=== PATIENT | male | born 1985 | race Caucasian/White ===

== ENCOUNTER 2017-11-01 20:56 | Emergency (ER) | payer MEDICAID, SELFPAY ==
[2017-11-01 20:58] VITALS: BP 124/72; PULSE 80; RESP 16; TEMP 36.1; O2SAT 95; BMI 24.2
--- NOTE | 2017-11-01 21:21 | NURSING ---
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
[2017-11-01 21:35] LABS: Absolute Neutrophil Count 7.7 X10^3/uL (2.0-7.7); Basophil# 0.03 X10^3/uL; Basophil% 0.3 % (0-1); Eosinophil# 0.08 X10^3/uL; Eosinophils% 0.7 % (0-5); Hematocrit 39.9 % (40-54); Hemoglobin 14.1 g/dl (13.0-16.5); Lymphocyte % 19.5 % (19-41); Mean Corp Hgb Conc 35.3 g/gl (32-36); Mean Corpuscular Hgb 32.9 pg (27.0-32.0); Mean Platelet Vol. 9.7 fl (6.2-12.0); Monocyte# 0.88 X10^3/uL; Monocyte% 8.2 % (0-10); Neutrophil # 7.66 X10^3/uL (2.7-7.7); Neutrophil % 71.1 % (47-70); Platelet Count 280 K/mm3 (150-450); RBC Distribution Width CV 12.1 % (11.6-14.6); RBC Distribution Width SD 40.6 fl (35.1-43.9); Red Blood Count 4.29 M/mm3 (4.6-6.2); White Blood Count 10.8 K/mm3 (4.4-11.0)
[2017-11-01 21:36] LABS: POSITIVE COUNT NO; POSITIVE DIFFERENTIAL NO; POSITIVE MORPHOLOGY NO
[2017-11-01 21:43] LABS: International Normalized Ratio 1.1; Prothrombin Time (Protime)PT. 13.9 SECONDS (11.7-14.9)
--- NOTE | 2017-11-01 21:46 | NURSING ---
PAGED DR. العراقي @ [id number] AND CALLED BACK @ [id number]
[2017-11-01 21:48] LABS: Anion Gap 6 (5-15); BUN 10 mg/dL (7-18); BUN/Creat Ratio 9.5 RATIO (10-20); Calcium,Total 8.3 mg/dL (8.5-10.1); Chloride 106 mmol/L (98-107); Creatinine, Serum 1.05 mg/dL (0.70-1.30); EST Glomerular Filtration Rate 87 mL/min (>60); Est Glom Filt Rate - Afr Amer 105 mL/min (>60); Glucose 96 mg/dL (74-106); Potassium 3.9 mmol/L (3.5-5.1); Sodium Level 140 mmol/L (136-145)
[2017-11-01] MEDS: Ondansetron 4 MG/2 ML Vial IV (22:01)
[2017-11-01] MEDS: Ketorolac 30 MG/ML Syringe IV (22:27)
--- NOTE | 2017-11-01 22:48 | ED.DCSUM_ITS ---
- ER Visit Summary Date of Service: 11/01/17 Chief Complaint: Oral bleeding History of Present Illness: The patient is a 32 M who had dental surgery earlier today at the start him in clinic. He had multiple dental extractions. Roughly 2 hours after the procedure he began to have bleeding. He has been unable to control this so he presented here. He denies any history of coagulopathy or easy bruising or bleeding in the past. He has on no anticoagulants or aspirin. Physical Examination: Afebrile vitals are stable Patient has active bleeding along the superior alveolar ridge. He had multiple clots. Neck supple Heart regular Lungs clear Test Results: CBC BMP and INR unremarkable. Emergency Department Course and Treatment: She had significant bleeding on initial presentation. He continued to have bleeding and clots. I spoke to Dr. Cazares and Dr. Torrez and recommendations were made to try thrombin and FloSeal. Did Pl., FloSeal on gauze and had the patient bite down on this. On reevaluation his bleeding appears to be controlled. I did have him continue to bite on gauze to apply pressure. At the time of this dictation roughly 2 hours after presentation his bleeding does appear to remain controlled he does not currently have active bleeding. I will observe him for another hour to ensure the bleeding is controlled and if it is he can be discharged home. Was advised of the need to follow-up with his dentist. He understands to return for new or worsening symptoms. Treatment Plan: [] Disposition: Discharge Impression: Postoperative bleeding This note was generated with [employer] dictation software. It may contain incorrect words, spelling, and punctuation that were not noted in review of the chart prior to signing ED Disposition - Plan for ED Patient: Chief Complaint: Dental Referrals: Care Physician,No Primary [Primary Care Provider] -
--- NOTE | 2017-11-01 22:49 | ED.DEP ---
ED Disposition - Plan for ED Patient: Chief Complaint: Dental Instructions: ED Wound Check Post Op Bleeding Referrals: Care Physician,No Primary [Primary Care Provider] -
[2017-11-02 00:01] VITALS: BP 120/77; PULSE 61; RESP 16; O2SAT 100
== END 2017-11-02 00:02 | disposition home or self-care (01) ==
LOC: ED 21:24
PROVIDERS: Emergency Provider Emergency Medicine
DX: K91.840 Postprocedural hemorrhage of a digestive system organ or structure following a digestive system procedure (principal); Z98.818 Other dental procedure status; Z72.0 Tobacco use
CPT/HCPCS: 80048; 85025; 85610; 96374; 96375; 99284; A4216; J2405

== ENCOUNTER → 2021-06-22 09:44 | Outpatient (CLI) | payer BC, SELFPAY ==
[2021-06-22 10:31] LABS: Hemoglobin A1c 5.1 % (3.8-5.6)
[2021-06-28 00:06] LABS: Testosterone, Free 8.02 ng/dL (5.00-21.00)
[2021-06-28 13:44] LABS: Testosterone, % Free 1.38 % (1.50-4.20); Testosterone, Total 581 ng/dL (264-916)
== END ==
PROVIDERS: Referring Provider Nurse Practitioner Adult Health; Visit Provider Nurse Practitioner Adult Health
DX: N52.9 Male erectile dysfunction, unspecified (principal); F41.1 Generalized anxiety disorder; Z51.81 Encounter for therapeutic drug level monitoring
CPT/HCPCS: 36415; 83036; 84402; 84403

== ENCOUNTER 2025-07-24 15:29 | Emergency (ER) | payer MEDICAID, SELFPAY ==
[2025-07-24 15:30] VITALS: BP 106/66; PULSE 108; RESP 18; TEMP 37.6; O2SAT 97; BMI 24.0
--- NOTE | 2025-07-24 15:40 | RAD_ITS ---
PROCEDURE: CHEST PA AND LATERAL 07/24/2025 REASON FOR EXAM: COUGH TECHNIQUE: Procedure Code: RADCXR Modality: DX Procedure: CHEST PA AND LATERAL COMPARISON: None FINDINGS: Hardware: None Heart: The heart size is normal. Mediastinum: The mediastinal contour is unremarkable. Lungs: The lungs are clear. Bones: The bones are unremarkable. RAD/Chest PA and Lateral IMPRESSION: NO ACUTE FINDINGS. Reading Location: [facility]
--- NOTE | 2025-07-24 15:41 | EX.ED.VIS.UR ---
HPI HPI - URI History of Present Illness Chief Complaint: Abd Pain Detail of Chief Complaint: Nonproductive cough. Lower rib cage pain bilaterally. Informant: patient Onset/Context/Timing Onset: Today Context: Gradual Onset Timing: Intermittent Current Severity: Mild Maximum Severity: Mild Narrative Narrative: 39-year-old male no significant past medical history no significant prior abdominal surgeries. States he has a nonproductive cough and bilateral lower rib cage pain today. No abdominal pain. Denies any nausea, vomiting or diarrhea. No fever. No dysuria. No constipation. No melena. Prior similar symptoms: No Recent Illness/Hospitalization: No ROS ROS ED ROS Narrative Nonproductive cough and bilateral lower rib cage pain. Constitutional Constitutional ED: Denies fever(s) Eyes Eyes: Denies blurry vision ENT ENT ED: Denies ear pain Cardiovascular Cardiovascular: Reports other Details: Bilateral rib cage pain. Nonproductive cough. ; Denies chest pain Respiratory/Chest Respiratory/Chest: Denies cough or dyspnea Gastrointestinal Gastrointestinal: Denies abdominal pain, constipation, diarrhea, melena, nausea or vomiting Genitourinary Genitourinary ED: Denies dysuria or hematuria Musculoskeletal Musculoskeletal: Denies arthralgias or back pain Integumentary Denies abscess Neurologic Neurologic: Denies headache(s) Psychiatric Psychiatric: Denies anxiety or depression Endocrine Endocrinology: Denies cold intolerance Hematologic/Lymphatic Hematologic/Lymphatic: Denies easy bleeding, easy bruising or lymphadenopathy Allergic/Immunologic Allergic/Immunologic ED: Denies mouth swelling, tongue swelling or urticaria PFSH PFSH Medical History no medical history no medical history Home Medications ?Medication ?Instructions ?Recorded ?Last Taken ?Type fluoxetine 20 mg capsule 20 mg PO DAILY 11/01/17 Unknown History Allergy/AdvReac Type Severity Reaction Status Date / Time atomoxetine (From Strattera) Allergy Intermediate crotch pain Verified 07/24/25 15:29 Social History Smoking Status: Current every day smoker EXAM Physical Exam Narrative Exam Narrative: 39-year-old male vital signs are stable afebrile does not look septic toxic no acute distress. Pulse ox 97% on room air temperature 99.7. Patient does not look septic nor toxic. H EENT exam pupils round react light. Moist mutes membranes. Posterior pharynx unremarkable. No trouble swallowing or breathing no erythema or exudate. TMs normal no signs of trauma to face or scalp. Neck nontender. No lymphadenopathy. No meningismus. Able to touch chin to chest. Back nontender. Lungs clear to auscultation bilaterally. Heart regular rhythm rate about 105 no murmur. Chest wall ribs nontender. Abdomen soft, nontender, nondistended, normal bowel sounds without peritoneal signs. Both right upper right lower quadrant unremarkable. No distention no mass. No obstruction. Moving all 4 extremities. 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 Normal dorsi plantarflexion. Nontender no edema. Normal range of motion. Neurologic exam normal. NIH 0. Fingertip to nose [id number] within normal limits. No drift. Skin unremarkable. No petechiae or purpura. No rashes. Benign exam. Const Vital Signs: 07/24/25 15:30 Temperature 99.7 F H Temperature Source Oral Pulse Rate 108 H Respiratory Rate 18 Blood Pressure 106/66 Blood Pressure Mean 79 Pulse Ox 97 Oxygen Delivery Method Room Air MDM MDM MDM Narrative Medical decision making narrative: 39-year-old male nonproductive cough and bilateral lower rib cage pain. On exam no abdominal pain. Tingling is a viral syndrome. Is a very benign exam but will obtain chest x-ray to rule out a lower lobe pneumonia. Clinically I do not hear pneumonia. He was offered but did not want any Tylenol or Motrin. Repeat exam unchanged around 3:55 PM. Chest x-ray is unremarkable. Being discharged home. Treated as viral syndrome. Repeat abdominal exam benign. History & Record Review Discussion w/independent historian: Patient Additional record(s) reviewed:: Prior outpatient record and Prior ED visit Radiography Chest X-Ray - ED: 2 View, Read by ED Physician, Normal, Heart, Lungs, Mediastinum, Bony Structures and No Acute Disease Diagnostic Testing: Chest x-ray, 2 views, AP and lateral, interpreted by myself shows no acute abnormality. Normal cardiac silhouette. Normal lung driscoll. Discharge Plan Triage Chief Complaint: Abd Pain Other Complaint: Headache ED Provider: Yfn Velez Dx/Rx/DC Orders Clinical Impression: Viral syndrome Instructions: ED Viral Syndrome (Adult) Prescriptions: No Action fluoxetine 20 MG capsule 20 mg PO DAILY Primary Care Provider: Care Physician,No Primary Referrals: Nilesh Rodriguez MD [Med Staff - Systems Engineering Manager, Family Practice] - 1 Week if not improving Care Physician,No Primary [Primary Care Provider, Medical] Activity Restrictions/Additional Instructions: Plenty of fluids and rest. Motrin and Tylenol for pain. Follow-up if not improving or return if worse. Print Language: Taiwanese Disposition Disposition: Home, Self Care
--- OUTSIDE RECORDS SUMMARY | 2025-07-24 15:49 | XMS RPT_ITS | CCD ---
Author Organization [facility] Care Team Providers Care Billboard Erector Name Role Phone Required, No Pcp Unavailable Unavailable Mirza Black Unavailable Unavailable No, Physician Primary Care Provider Unavailabl e NO, PHYSICIAN Primary Care Unavailable NACHO MORENO Referring Unavailable NACHO MORENO Admitting Unavailable Mraiah ARANGO, Lynn Ron [facility] Care Provide r Lynn Lemus MD [facility] Provide r Lynn Lemus MD Unavailable CANDY GILBERT Attending Unavailab LYNN Ram Primary Care Unavail able LYNN LEMUS Primary [facility] Unavail able CANDY GILBERT Referring Unavailab GUILLERMINA Dalal Admitting Unavailable TOMAS MCDONALD Attending Unavailab sugar Lemus MD, Lynn Ron [facility] Provide r Robert Hernandez CNP Primary Care Provider ROBERT HERNANDEZ Attending UnavailLYNN Pisano Primary Care Unavail able ROBERT HERNANDEZ Primary Care Unavailabl ROBERT Zurita Referring Unavailabl ROBERT Zur[place] Admitting Unavailrob e JUMANA JIMENEZ Attending Unavailab le ROBERT HERNANDEZ Primary Care Unavailabl e JUMANA JIMENEZ Attending Unavailab le ROBERT HERNANDEZ Primary Care Unavailrob e JUMANA JIMENEZ Attending Unavailab le ROBERT HERNANDEZ Primary Care Unavailabl e JUMANA JIMENEZ Attending ROBERT Bass Primary Care JUMANA Rangel Attending [place] Allergies Allergy Classification Reported Allergen(s) Allergy Type Date of Onset Reaction(s) Facility (16 sources) atomoxetine; Translations: [ATOMOXETINE] Drug Allergy 2 Other (See Comments) [facility] Work Phone: (7 sources) Viloxazine; Translations: [VILOXAZINE] Drug Allergy 5 Unknown [facility] Medications Current Medications Medication Drug Class(es) Dates Sig (Normalized) Sig (Original) amphetamine aspartate 3.75 mg / amphetamine sulfate 3.75 mg / dextroamphetamine saccharate 3.75 mg / dextroamphetamine sulfate 3.75 mg oral tablet (2 sources) Central Nervous System Stimulant take 1 tablet by mouth once daily Adderall 10 mg oral tablet ; orally once a day Quantity: 0 Refills: 0 Ordered: 29-Oct-2021 Siewert, Xochilt Generic Substitution Allowed take 1 tablet by mouth once usha y Adderall 15 mg oral tablet ; orally once a day Quantity: 0 Refills: 0 Ordered: 29-Oct-2021 Siewert, Xochilt Generic Substitution Allowed ARIPiprazole 10 mg oral tablet (2 sources) Atypical Antipsychotic Start: 05-12-2025 End: 06-11-2025 take 1 tablet by mouth once daily ARIPiprazole (ABILIFY) 10 MG tablet Indications: Moderate episode of recurrent major depressive disorder (HCC) , Paranoia (HCC) Take 1 (one) tablet (10 mg total) by mouth daily . 30 tablet 05/12/2025 06/11/2025 Active Start: 04-28-2025 End: 05-28-2025 take 1 tablet by mouth once daily ARIPiprazole (ABILIFY) 5 MG tablet Indications: Moderate episode of recurrent major depressive disorder (HCC) , Paranoia (HCC) Take 1 (one) tablet (5 mg total) by mouth daily . 30 tablet 04/28/2025 05/28/2025 Active 24 hr buPROPion hydrochloride 450 mg extended release oral tablet (17 sources) Aminoketone Start: 04-06-2022 End: 2022 take 1 tablet by mouth once daily buPROPion (FORFIVO XL) 450 mg 24 hr tablet Indications: Attention deficit hyperactivity disorder (ADHD), predominantly inattentive type , Moderate episode of recurrent major depressive disorder (HCC) Take 1 (one) tablet (450 mg total) by mouth daily . 30 tablet 5 04/06/2022 2022 Discontinued (Therapy completed) Start: 02-28-2022 End: 11-14-2024 take 1 tablet by mouth once daily buPROPion (WELLBUTRIN XL) 300 MG 24 hr tablet Take 1 (one) tablet (300 mg total) by mouth daily . 0 02/28/2022 04/06/2022 Discontinued (Reorder) End: 11-14-2024 take 1 tablet by mouth once daily buPROPion (WELLBUTRIN XL) 150 MG 24 hr tablet Take 1 (one) tablet (150 mg total) by mouth daily . 11/14/2024 Discontinued (Patient's Request) Wellbutrin ; 300 orally once a day Quantity: 0 Refills: 0 Ordered: 29-Oct-2021 Lisa Xochilt Generic Substitution Allowed bx rating 24 hr methylphenidate hydrochloride 27 mg extended release oral tablet (4 sources) Central Nervous System Stimulant Start: 01-04-2022 take 1 tablet by mouth once daily methylphenidate HCl (CONCERTA) 27 MG CR tablet Take 1 (one) tablet (27 mg total) by mouth daily . 0 01/04/2022 Active methylPREDNISolone (5 sources) Corticosteroid Start: 03-22-2022 End: 2022 methylPREDNISolone (MEDROL DOSEPACK) 4 mg tablet follow package directions . 21 tablet 0 03/22/2022 2022 Discontinued (Therapy completed) Start: 03-22-2022 methylPREDNISo lone (MEDROL DOSEPACK) 4 mg tablet follow package directions . 21 tablet 0 03/22/2022 Active Seraquel (1 source) Seraquel ; 100 milligram(s) once a day Quantity: 0 Refills: 0 Ordered: 29-Oct-2021 Siechayat, Xochilt Generic Substitution Allowed sildenafil 100 mg oral tablet (1 source) Phosphodiesterase 5 Inhibitor Start: 023 End: 023 take 1 tablet by mouth once daily as needed sildenafiL (VIAGRA) 100 MG tablet Indications: Erectile dysfunction, unspecified erectile dysfunction type Take 1 (one) tablet (100 mg total) by mouth daily as needed for erectile dysfunction . 9 tablet 5 2022 04/05/2023 Active traZODone hydrochloride 150 mg oral tablet (13 sources) Serotonin Reuptake Inhibitor Start: End: take 2 tablets by mouth once daily traZODone (DESYREL) 150 MG tablet Indications: Insomnia, unspecified type Take 2 (two) tablets (300 mg total) by mouth nightly . 90 tablet 1 11/14/2024 Active Completed/Discontinued Medications Medication Drug Class(es) Dates Sig (Normalized) Sig (Original) aluminum hydroxide 40 mg/ml / magnesium hydroxide 40 mg/ml / simethicone 4 mg/ml oral suspension (1 source) Start: 07-21-2023 End: 07-22-2023 take 30 mL by mouth every four hours as needed 30 mL, Oral, Every 4 hours PRN, indigestion, Starting on Mon07/21/23 at 2344 ibuprofen 600 mg oral tablet (1 source) Nonsteroidal Anti-inflammatory Drug Start: 07-21-2023 End: 07-22-2023 take 1 tablet by mouth every six hours as needed for pain and headache 600 mg, Oral, Every 6 hours PRN, mild pain, fever 100.4 F or greater, headaches, Starting on Mon07/21/23 at 2344 Give with food. Do Not Crush or Chew if administering orally due to bitter taste. May be crushed if given via tube. lamoTRIgine 100 mg oral tablet (5 sources) Mood Stabilizer, Anti-epileptic Agent End: 11-14-2024 take 1 tablet by mouth once daily lamoTRIgine (LAMICTAL) 100 MG tablet Take 1 (one) tablet (100 mg total) by mouth daily . 11/14/2024 Discontinued (Patient's Request) LORazepam 1 mg oral tablet (1 source) Benzodiazepine Start: 07-21-2023 End: 07-22-2023 take 1 tablet by mouth every six hours as needed for anxiety 1 mg, Oral, Every 6 hours PRN, anxiety, agitation, Starting on Mon07/21/23 at 2343 melatonin 5 mg oral tablet (1 source) Start: 07-21-2023 End: 07-22-2023 take 5 mg by mouth once daily as needed for sleep 5 mg, Oral, Nightly PRN, Sleep, Starting on Mon07/21/23 at 2344 ondansetron (ZOFRAN-ODT) disintegrating tablet 4 mg (1 source) Start: 07-21-2023 End: 07-22-2023 take 1 tablet by mouth every six hours as needed for nausea and vomiting ondansetron (ZOFRAN-ODT) disintegrating tablet 4 mg QUEtiapine 200 mg oral tablet (20 sources) Atypical Antipsychotic Start: 01-28-2025 End: 04-28-2025 take 1 tablet by mouth once daily QUEtiapine (SEROQUEL) 200 MG tablet Indications: Moderate episode of recurrent major depressive disorder (HCC) , Generalized anxiety disorder Take 1 (one) tablet (200 mg total) by mouth nightly . 90 tablet 01/28/2025 04/28/2025 Discontinued (Prescriber Discontinued) Start: 01-01-2025 End: 01-28-2025 take 1 tablet by mouth once daily QUEtiapine (SEROQUEL) 100 MG tablet Indications: Moderate episode of recurrent major depressive disorder (HCC) , Generalized anxiety disorder Take 1 (one) tablet (100 mg total) by mouth nightly . 30 tablet 01/01/2025 01/28/2025 Discontinued (Reorder (Suppress CancelRx Message to Pharmacy)) Start: 11-14-2024 End: 01-01-2025 take 1 tablet by mouth once daily QUEtiapine (SEROQUEL) 50 MG tablet Indications: Moderate episode of recurrent major depressive disorder (HCC) , Borderline personality disorder (HCC) Take 1 (one) tablet (50 mg total) by mouth nightly . 90 tablet 1 11/14/2024 01/01/2025 Discontinued (Reorder (Suppress CancelRx Message to Pharmacy)) Start: 02-28-2022 End: 2022 take 1 tablet by mouth once daily QUEtiapine (SEROQUEL) 100 MG tablet Indications: Moderate episode of recurrent major depressive disorder (HCC) Take 1 (one) tablet (100 mg total) by mouth daily . 30 tablet 5 04/06/2022 2022 Discontinued (Therapy completed) Sodium Chloride (1 source) Start: 07-21-2023 End: 07-22-2023 sodium chloride (PF) (NS) flush 5 mL 1 ml triamcinolone acetonide 40 mg/ml injection (2 sources) Corticosteroid Start: 08-10-2022 End: 08-10-2022 triamcinolone acetonide (KENALOG-40) injection 40 mg Start: 03-22-2022 End: 03-22-2022 triamcinolone acetonide (SALMA ALOG-40) injection 40 mg Problems Active Problems Problem Classification Problem Date Documented Date Episodic/Chronic Anxiety disorders (6 sources) Generalized anxiety disorder; Translations: [Generalized anxiety disorder] Onset: 01-01-2025 01-01-2025 Chronic Attention-deficit, conduct, and disruptive behavior disorders (20 sources) Attention deficit hyperactivity disorder, predominantly inattentive type; Translations: [Attention-deficit hyperactivity disorder, predominantly inattentive type] Onset: 04-06-2022 Chronic Attention-deficit, conduct, and disruptive behavior disorders (2 sources) Attention-deficit hyperactivity disorder, predominantly inattentive type; Translations: [Attention-deficit hyperactivity disorder, predominantly inattentive type] Onset: 04-06-2022 Chronic Mood disorders (20 sources) Recurrent major depressive episodes, moderate ; Translations: [Major depressive disorder, recurrent, moderate] Onset: 04-06-2022 Chronic Other aftercare (1 source) Long-term current use of antipsychotic medication; Translations: [Other senior living (current) drug therapy] 04-28-2025 Episodic Other connective tissue disease (1 source) Biceps tendinitis; Translations: [Bicipital tendinitis, left shoulder] Episodic Other connective tissue disease (2 sources) Bursitis of shoulder; Translations: [Bursitis of left shoulder] Episodic Other connective tissue disease (1 source) Tendinitis of left rotator cuff; Translations: [Other shoulder lesions, left shoulder] Episodic Other male genital disorders (11 sources) Male erectile dysfunction, unspecified; Translations: [Impotence of organic origin] Onset: 2022 Chronic Personality disorders (18 sources) Borderline personality disorder; Translations: [Borderline personality disorder] Onset: 11-14-2024 11-14-2024 Chronic Poisoning by other medications and drugs (2 sources) Poisoning by unspecified drugs, medicaments and biological substances, accidental (unintentional), initial encounter; Translations: [Poisoning by unspecified drugs, medicaments and biological substances, accidental (unintentional), initial encounter] Onset: 07-21-2023 Episodic Residual codes; unclassified (10 sources) Insomnia; Translations: [Insomnia, unspecified] 11-14-2024 Episodic Schizophrenia and other psychotic disorders (6 sources) Paranoid disorder; Translations: [Delusional disorders] Onset: 04-28-2025 04-28-2025 Chronic Unclassified (2 sources) TOUCHED DOG PHENTANOL PATCH 10-30-2021 Comment on above: TOUCHED DOG PHENTANO L PATCH Unclassified (2 sources) Medication Refill Onset: 11-14-2024 Past or Other Problems Problem Classification Problem Date Documented Date Episodic/Chronic Mood disorders (16 sources) Mood disorders Onset: 11-14-2024 Resolved: 01-01-2025 11-14-2024 Poisoning by psychotropic agents (12 sources) Accidental buspirone overdose; Translations: [Poisoning by other antipsychotics and neuroleptics, accidental (unintentional), initial encounter] Onset: 07-21-2023 07-21-2023 Episodic Results Test Name Value Interpretation Reference Range Facility CBC Auto Differentialon 07-01 Basophils (Bld) [#/Vol] 0.04 10*3/uL [facility] Basophils/100 WBC (Bld) 0.7 % [facility] Eosinophils (Bld) [#/Vol] 0.13 10*3/uL [facility] Eosinophils/100 WBC (Bld) 2.3 % [facility] Erythrocyte distribution width (RBC) [Entitic vol] 12.0 % 11.6 - 14.8 % [facility] Hematocrit (Bld) [Volume fraction] 39.5 % Low 41.0 - 53.0 % [facility] Hemoglobin (Bld) [Mass/Vol] 13.6 g/dL 13.5 - 17.5 g/dL [facility] Immature granulocytes (Bld) [#/Vol] 0.01 10*3/uL [facility] Immature granulocytes/100 WBC (Bld) 0.20 % [facility] Comment on above: The IG parameter is the percentage of metamyelocytes, myelocytes and promyelocytes. An immature granulocyte count (IG) of 1% or more suggests the possibility of infection, an IG count of 3% is very likely related to an infection. Interpretation and review of laboratory results Abnormal [facility] Lymphocytes (Bld) [#/Vol] 2.06 10*3/uL [facility] Lymphocytes/100 WBC (Bld) 36.0 % [facility] MCH (RBC) [Entitic mass] 32.2 pg 26.0 - 34.0 pg [facility] MCHC (RBC) [Mass/Vol] 34.4 g/dL 31.0 - 37.0 g/dL [facility] MCV (RBC) [Entitic vol] 93.6 fL 80.0 - 100.0 fL [facility] Monocytes (Bld) [#/Vol] 0.64 10*3/uL [facility] Monocytes/100 WBC (Bld) 11.2 % [facility] Neutrophils (Bld) [#/Vol] 2.84 10*3/uL [facility] Neutrophils/100 WBC (Bld) 49.6 % [facility] Nucleated RBC (Bld) [#/Vol] 0.00 10*3/uL [facility] Nucleated RBC/100 WBC (Bld) [Ratio] 0.0 % [facility] Platelet mean volume (Bld) [Entitic vol] 9.2 fL Low 9.4 - 12.4 fL [facility] Platelets (Bld) [#/Vol] 243 10*3/uL [facility] RBC (Bld) [#/Vol] 4.22 10*6/uL [facility] WBC (Bld) [#/Vol] 5.72 10*3/uL [facility] Comprehensive metabolic 2000 panelon 07-22-2023 Albumin [Mass/Vol] 3.2 g/dL 3.2 - 5.2 g/dL [facility] ALP [Catalytic activity/Vol] 64 U/L 40 - 140 U/L [facility] ALT [Catalytic activity/Vol] 17 U/L 14 - 65 U/L [facility] Anion gap [Moles/Vol] 8 mmol/L Low 10 - 20 mmol/L [facility] AST [Catalytic activity/Vol] 15 U/L 0-50 U/L [facility] Bilirubin [Mass/Vol] 0.5 mg/dL 0.0 - 1.3 mg/dL [facility] Calcium [Mass/Vol] 8.2 mg/dL Low 8.4 - 10. 2 mg/dL [facility] Chloride [Moles/Vol] 109 mmol/L High 98 - 108 mmol/L [facility] Creatinine [Mass/Vol] 1.16 mg/dL 0.50 - 1.30 mg/dL [facility] GFR/1.73 sq M.predicted CKD-EPI (S/P/Bld) [Vol rate/Area] 83 - PINF [facility] Comment on above: Estimated GFR was ca lculated using the 2020 CKD-EPI creatinine equation. Glucose [Mass/Vol] 121 mg/dL High 65 - 99 mg/dL [facility] HCO3 [Moles/Vol] 27 mmol/L 21 - 32 mmol/L [facility] Interpretation and review of laboratory results Abnormal [facility] Potassium [Moles/Vol] 3.6 mmol/L 3.5 - 5.1 mmol/L [facility] Protein [Mass/Vol] 6.0 g/dL 6.0 - 8.0 g/dL [facility] Sodium [Moles/Vol] 140 mmol/L 135 - 145 mmol/L [facility] Urea nitrogen [Mass/Vol] 8 mg/dL 8 - 25 mg/dL [facility] Urea nitrogen/Creatinine [Mass ratio] 6.9 mg/mg Low 10.0 - 20.0 [facility] Services has implemented the eGFR calculation approach that does not have a coefficient for race that conforms to the NKF-ASN Task Force Recommendations. [facility] Magnesiumon 07-22-2023 Magnesium [Mass/Vol] 2.4 mg/dL 1.6 - 2.4 mg/dL [facility] Magnesium [Mass/Vol]on 07-22 Interpretation and review of laboratory results Normal [facility] LG Jt Injection/Arthrocentes is: L subacromial bursaon 08-10-2022 Nacho Moreno CNP 08/10/2022 8:34 AM LG Jt Injection/Arthrocentesi s: L subacromial bursa Performed by: Nacho Moreno CNP Authorized by: Nacho Moreno CNP CPT 07807 - Large Joint Arthrocentesis: Consent given by: Patient Time out: Immediately prior to the procedure a time out was called Timeout performed at: 08/10/2022 8:34 AM Physician or proceduralist has discussed critical or nonroutine steps, procedure duration and anticipated blood loss: Yes Supporting Documentation: Indications: Pain Procedure Details: Location: Shoulder Site: L subacromial bursa Prep: patient was prepped and draped in usual sterile fashion Needle size: 22 G Approach: Posterior Medications: 40 mg triamcinolone acetonide 40 mg/mL Anesthetic used: Ethyl Chloride and Bupivacaine 0.5% Anesthetic amount (mL): 1 Patient tolerance: Patient tolerated the procedure well with no immediate complications [facility] Basic metabolic 2000 panelon 04-06-2022 Anion gap [Moles/Vol] 10 mmol/L 10 - 20 mmol/L [facility] Calcium [Mass/Vol] 8.7 mg/dL 8.4 - 10. 2 mg/dL [facility] Chloride [Moles/Vol] 109 mmol/L High 98 - 108 mmol/L [facility] Creatinine [Mass/Vol] 1.03 mg/dL 0.50 - 1.30 mg/dL [facility] GFR/1.73 sq M.predicted CKD-EPI (S/P/Bld) [Vol rate/Area] 97 - PINF [facility] Comment on above: Estimated GFR was ca lculated using the 2020 CKD-EPI creatinine equation. Glucose [Mass/Vol] 93 mg/dL 65 - 99 mg/dL [facility] HCO3 [Moles/Vol] 25 mmol/L 21 - 32 mmol/L [facility] Potassium [Moles/Vol] 4.3 mmol/L 3.5 - 5.1 mmol/L [facility] Sodium [Moles/Vol] 140 mmol/L 135 - 145 mmol/L [facility] Urea nitrogen [Mass/Vol] 13 mg/dL 8 - 25 mg/dL [facility] Urea nitrogen/Creatinine [Mass ratio] 12.6 mg/mg 10 - 20 [facility] has implemented the eGFR calculation approach that does not have a coefficient for race that conforms to the NKF-ASN Task Force Recommendations. [facility] Hepatic function 1999 panelo n 04-06-2022 Albumin [Mass/Vol] 3.7 g/dL 3.2 - 5.2 g/dL [facility] ALP [Catalytic activity/Vol] 88 U/L 40 - 140 U/L [facility] ALT [Catalytic activity/Vol] 39 U/L 14 - 65 U/L [facility] AST [Catalytic activity/Vol] 30 U/L 0 - 45 U/L [facility] Bilirubin [Mass/Vol] 0.4 mg/dL 0 - 1.3 mg/dL [facility] Bilirubin.conjugate d [Mass/Vol] 0.1 mg/dL 0 - 0.4 mg/dL [facility] Protein [Mass/Vol] 6.6 g/dL 6 - 8 g/dL [facility] Lipid 1995 panelon 2 Cholesterol [Mass/Vol] 216 mg/dL High 100 - 199 mg/dL [facility] Comment on above: National Cholesterol Education Program Guidelines: Cholesterol Desirable: <200 mg/dL Borderline High: 200-239 mg/dL High: greater than or equal to 240 mg/dL Cholesterol in HDL [Mass/Vol] 66 mg/dL 40 - 59 mg/dL [facility] Comment on above: National Cholesterol Education Program Guidelines: HDL Cholesterol Low: <40 mg/dL Near Optimal: 40-59 mg/dL High: greater than or equal to 60 mg/dL Cholesterol in LDL [Mass/Vol] 141 mg/dL High 10 - 130 mg/dL [facility] Comment on above: National Cholesterol Education Program Guidelines: LDL Cholesterol Optimal: <100 mg/dL Near Optimal/above Optimal: 100-129 mg/dL Borderline High: 130-159 mg/dL High: 160-189 mg/dL Very High: greater than or equal to 190 mg/dL Cholesterol non HDL [Mass/Vol] 150 mg/dL [facility] Comment on above: National Cholesterol Education Program Guidelines: NON HDL Cholesterol Desirable: <130 mg/dL Borderline High: 130-159 mg/dL High: 160-189 mg/dL Very High: > or = 190 mg/dL Cholesterol.total/C holesterol in HDL [Mass ratio] 3.3 {ratio} ratio [facility] Comment on above: Males Cholesterol/HD L Ratio: Average risk: 5.0 1/2 average risk: 3.4 2 x average risk: 9.6 Triglyceride [Mass/Vol] 44 mg/dL 30 - 150 mg/dL [facility] Comment on above: National Cholesterol Education Program Guidelines: Triglyceride Normal: <150 mg/dL Borderline High: 150-199 mg/dL High: 200-499 mg/dL Very High: greater than or equal to 500 mg/dL No Panel Informationon 04-06 Interpretation and review of laboratory results Abnormal [facility] Interpretation and review of laboratory results Normal [facility] TSH DL <= 0.005 mIU/L Qnon 0 04-06-2022 TSH Qn 2.14 m[IU]/L [facility] LG Jt Injection/Arthrocentes virgilio 03-22-2022 Nacho Moreno CNP 03/22/2022 8:30 AM LG Jt Injection/Arthrocentesi s Performed by: Nacho Moreno CNP Authorized by: Nacho Moreno CNP CPT 74242 - Large Joint Arthrocentesis: Consent given by: Patient Time out: Immediately prior to the procedure a time out was called Timeout performed at: 03/22/2022 8:30 AM Physician or proceduralist has discussed critical or nonroutine steps, procedure duration and anticipated blood loss: Yes Supporting Documentation: Indications: Pain Procedure Details: Location: Shoulder Shoulder joint: L biceps tendon groove. Prep: patient was prepped and draped in usual sterile fashion Needle size: 22 G Approach: Posterior Medications: 40 mg triamcinolone acetonide 40 mg/mL Anesthetic used: Ethyl Chloride Patient tolerance: Patient tolerated the procedure well with no immediate complications [facility] XR SHOULDER LEFT 2+ VIEWS (S TANDARD)on 03-22-2022 XR SHOULDER LEFT 2+ VIEWS (STANDARD) EXAMINATION: XR SHOULDER LEFT 2+ VIEWS (STANDARD) HISTORY: ORDERING SYSTEM PROVIDED HISTORY: Pain, TECHNOLOGIST PROVIDED HISTORY: Injury/Trauma Reason for exam: pain Cancer History: u Surgery, RadiationHistory: u Encounter Type: Initial Mechanism of injury: improper form lifting weights ORDERING SYSTEM PROVIDED DIAGNOSIS CODES: R52 Pain COMPARISON: None. FINDINGS: Four views of the left shoulder. No acute fracture. Glenohumeral and acromioclavicular joints are anatomically aligned. Joint spaces are preserved. Soft tissues are within normal limits. IMPRESSION: No acute osseous abnormality. /[facility] Workstation ID: [id number] Dictated by: MARCIA MARTINEZ on MonMar 22, 2022 4:14:53 PM EDT Transcribed by: LUTHER MOSES on MonMar 22, 2022 4:38:03 PM EDT Finalized by: MARCIA MARTINEZ on MonMar 22, 2022 7:56:09 PM EDT [facility] Comment on above: Order Comment: Injur y/Trauma or Illness?:Injury/Trauma How long have you had these symptoms (acute/chronic)?:Acute Reason for exam?:pain History of cancer?:u Surgeries, chemotherapy, or radiation?:u Type of Exam?:Initial Mechanism of injury?:improper form lifting weights Provider Note - ED v3on 04-0 Provider Note - ED v3 Provider Note: Chart Review: ED NOTES ED NOTES: This is a 36 y/o M who presents because he accidentally brushed his hand against his dog's fentanyl patch. patient thinks he may have been exposed to fentanyl. He has no significant past medical history. The fentanyl patch is still on the patient's dog. the patch did not adhere to the patient's skin. Patient has no symptoms except anxiety at this time. Denied any difficulty breathing, chest pain or chest pressure, somnolence, nausea, vomiting, abdominal pain, diaphoresis. HISTORY OF PRESENTING ILLNESS SEBASTIAN is a 36 year old Male and was seen by me at 29-Oct-2021 22:54 for a chief complaint of other (States touched his dog Fentanyl patch and is nervous and in panic that he might have a side effect from it.)(1). The historian is the patient. Triage Information: Most recent Vital Sign Value Date Temp (F): 98.5 10-29-2021 22:56 Temp (C): 36.9 10-29-2021 22:56 Heart Rate (beats/min): 111 10-29-2021 22:56 Respirations (breaths/min): 18 10-29-2021 22:56 SpO2 (%): 100 10-29-2021 22:56 BP Systolic (mm Hg): 127 10-29-2021 22:56 BP Diastolic (mm Hg): 82 10-29-2021 22:56 PAST MEDICAL HISTORY CURRENT OR FORMER SUBSTANCE USE: Tobacco/Nicotine Use: never smoker Alcohol Use: denies Drug Use: denies,ALLERGIES/INTOLE RANCES: No Known Allergies HEALTH HISTORY: No documented data. OUTPATIENT MEDICATIONS: Home Medications Review Status for Reconciliation: Incomplete Med Status: Incomplete Medication History Drug Name: Seraquel Instructions: 100 milligram(s) once a day Drug Name: Wellbutrin Instructions: 300 orally once a day Drug Name: Adderall 15 mg oral tablet Instructions: orally once a day Drug Name: Adderall 10 mg oral tablet Instructions: orally once a day SIGNIFICANT EVENTS: Social/Behavioral Description:ADHD Description:Depression Description:Insomnia REVIEW OF SYSTEMS CONSTITUTIONAL: Negative for: chills and fever CARDIOVASCULAR: Negative for: chest pain RESPIRATORY: Negative for: cough and dyspnea GASTROINTESTINAL: Negative for: abdominal pain, diarrhea, nausea and vomiting; NEUROLOGICAL: Negative for: altered mental status and loss of consciousness; PSYCHIATRIC: POSITIVE for: anxiety ALLERGIC/IMMUNOLOGIC: Negative for: dermatitis; pruritus and rash All other systems reviewed and are negative PHYSICAL EXAM CONSTITUTIONAL: Well appearing, well nourished, awake, alert, oriented to person, place, time/situation and in no apparent distress. HENMT: Airway patent, ears with clear tympanic membranes bilaterally. Nasal mucosa clear. Mouth with normal mucosa. Throat has no vesicles, no oropharyngeal exudates and uvula is midline. Face with no lymph node enlargement. CARDIOVASCULAR: RRR RESPIRATORY: Breath sounds clear and equal bilaterally. MUSCULOSKELETAL: Spine appears normal, range of motion is not limited, no muscle or joint tenderness. NEUROLOGICAL: Alert and oriented, no focal deficits, no motor or sensory deficits. SKIN: Skin normal color for race, warm, dry and intact. No evidence of trauma. MDM MDM/ED COURSE: Is a 36-year-old male who presents because he accidentally brushed his hand against his dog's fentanyl patch. His dog recently had surgery and was given a fentanyl patch. He was petting the dog & his hand accidentally pressed against the patch. The patch did not adhere to his hand. Patient is feeling anxious about this event but otherwise denied any other symptoms. He has no significant past medical history. On my exam patient was well-appearing in no acute distress. he is tachycardic but this is due to anxiety. He is otherwise asymptomatic. No clinical signs of fentanyl exposure, overdose, or toxicity. at this time patient is well-appearing and stable for discharge. There are no clinical concerns at this time as patient did not come in contact with the fentanyl patch DISPOSITION Diagnosis/Annotation: ED Dx Name:Exposure, initial encounter Code:T75.89XA Disposition: discharged CONSULT CRITICAL CARE TIME Is this a critically ill patient: no Electronic Signatures: Mirza Black () (Signed 02-Nov-2021 06:46) Authored: ED Notes, HPI, PMH, ROS, PE, MDM/ED Course, Clinical Impression, Attestation, Chart Review, Scores Last Updated: 02-Nov-2021 06:46 by Mirza Black () References: 1. Data Referenced From Triage - ED 29-Oct-2021 22:56 Normal [facility] Risk Screen - Adult Emergenc yon 10-30-2021 Risk Screen - Adult Emergency Preferred Language: Preferred Language: Preferred Language for Discussing Health Care (patient/designee)Donald anna Advanced Directives: Advance Directive/DNRno Family Violence Adult: Abuse Screen: Are you or have you been threatened or abused physically, emotionally, or sexually by anyoneno Learning Assessment (Patient): Learning Assessment (Patient): Patient is Able to be Assessed for Learningyes Factors Influencing Readiness to Learndepression Factors that Impact Ability to Learnnone Devices/Methods Used to Communicatenone Learning Preferencesaudio Cultural Considerationsnone Developmental Considerationsnone Jewish Considerationsnone Other Learnersnone Learning Assessment (Other Learner): Learning Assessment (Other Learner): Other learner availableno Pressure Injury/TB/Substance: Pressure Injury: Pressure Injury Present on Admissionno Do you have a coughno Smoking Statusnever smoker Alcohol Useoccasionally Drug Usedaily Marijuana Admission Risk Screen: Significant IndicatorsComplete CAGE: CAGE: Is this an injured patient at a Trauma Center ([facility]/[facility]/[place]): no Electronic Signatures: Xochilt Gonzalez (KAT) (Signed 29-Oct-2021 23:10) Authored: Preferred Language, Advanced Directives, Family Violence Adult, Learning Assessment (Patient), Learning Assessment (Other Learner), Pressure Injury/TB/Substance, Pressure Injury, CAGE Last Updated: 29-Oct-2021 23:10 by Xochilt Gonzalez (KAT) [facility] Triage - EDon 10-30-2021 Triage - ED Quick Triage: The patient and/or guardian verbally acknowledges placement for services into the following (when Urgent Care Service hours are operating):emergency department Chart Review: ARRIVAL INFORMATION Mode of Arrival: private vehicle CHIEF COMPLAINT SEBASTIAN MOLINA is a Male patient with a chief complaint of other (States touched his dog Fentanyl patch and is nervous and in panic that he might have a side effect from it.). Onset of the Complaint: 29-Oct-2021 Triage Date/Time: 29-Oct-2021 22:56 SONJA: 4 Pain Rating (0-10): 0 = None Vital Signs: Temperature: 98.5F ( 36.9C) taken temporal Blood Pressure: 127/82 Mean: Heart Rate: 111 Respiratory Rate: 18 Pulse Oximetry: 100% on room air, no respiratory support. Height: 5 feet 9.00 inches. 175.2 CM Weight: 169.7 pounds. Calculated 77.0 kg. Calculated BMI (kg/m2): 25.085 Calculated BSA (m2) 1.94 Aline Coma Scale: Best Eye Response: (E4) spontaneous Best Motor Response: (M6) obeys commands Best Verbal Response: (V5) oriented [place] Score: 15 Cough lasting greater than 3 weeks: no Patient immunocompromised related to: N/A Allergies: no Patient has homicidal thoughts: no Last Known Well: unknown Risk Screens Suicide Risk Screen In the Past Month: Have you wished you were or wished you could go to sleep and not wake up no In the Past Month: Have you had any actual thoughts of killing yourself no In Your Lifetime: Have you ever done anything, started to do anything, or prepared to do anything to end your life no Interventions: Ruiz Fall Interventions: LOW INTERVENTIONS: *patient oriented to surroundings and call system, * patient/family falls education completed and documented, *patients fall status communicated during bedside handoff, *whiteboard updated, *mode of toileting discussed with patient, *bed in low position with brakes locked, *call light in reach, * non-skid footwearlow interventions except: patient oriented to surroundings and call systemlow interventions except: patient/family falls education completed and documentedlow interventions except: patients fall status communicated during bedside handoff, whiteboard updatedlow interventions except: mode of toileting discussed with patientlow interventions except: bed in low position with brakes lockedlow interventions except: call light in reach and low interventions except: non-skid footwear TRAVEL HISTORY Travel History Coronavirus Screening: no exposure or symptoms Travel Exposure History: NO travel to International locations in the past 30 days PAIN Pain Scale Used: OUMOU Pain Rating (0-10): 0 = None Past Medical History: Past Medical History Reviewedyes Insomnia: Social/Behavioral, Active Depression: Social/Behavioral, Active ADHD: Social/Behavioral, Active Electronic Signatures: Xochilt Gonzalez (SUPV) (Signed 29-Oct-2021 23:08) Authored: Quick Triage, Risk Screens, Pain, Travel History, Chart Review, Scores, Past Medical History Last Updated: 29-Oct-2021 23:08 by Xochilt Gonzalez (BELLOV) [facility] Testosterone, Total / Freeon 06-28-2021 TESTOSTERONE, T 581 ng/dL Normal [id number] [facility] Comment on above: Order Comment: N Result Comment: Adul t male reference interval is based on a population of healthy nonobese males (BMI <30) between 19 and 39 years old. radha Sanabria.arnold. JCEM 2017,102;[id number]. PMID: [id number]. Performed By: #### L 501.9985, L3100.5310 #### [facility] [address] [place], [place], [address] TESTOSTERONE,%F 1.38 Low 1.50-4.20 [facility] Comment on above: Order Comment: N Result Comment: Perf ormed at: [facility] [id number] Tipple Tender: Arsenio Barry PhD, Phone: [phone] Performed at: [facility] [id number] Tipple Tender: Alan Devi MD, Phone: [phone] Performed By: #### L [id number], [id number] #### [facility] [address] [place], [place], [id number] TESTOSTERONE, F 8.02 ng/dL Normal 5.00-21.00 [facility] Comment on above: Order Comment: N Performed By: #### L [id number], [id number] #### [facility] [address] [place], [place], [address] Hemoglobin A1con 06-22-2021 HbA1c (Bld) [Mass fraction] 5.1 % Normal 3.8-5.6 [facility] Comment on above: Result Comment: Norm al < 5.7 % Prediabetic 5.7 - 6.4 % Diabetic >or= 6.5 % Please note range changes. Performed By: #### L [id number], [id number] #### [facility] [address] [place], [place], [address] Vital Signs Date Time Vital Sign Value Performing Clinician Facility 09-29-2025 13:51-0400 Body height 175.3 cm Jumana Jimenez [employer] Work Phone: [facility] 04-28-2025 13:51-0400 Body mass index (BMI) [Ratio] 25.84 kg/m2 Jumana Olsens [employer] Work Phone: [facility] 04-28-2025 13:51-0400 Body weight 79.38 kg Jumana Olsens [employer] Work Phone: [facility] 04-28-2025 13:51-0400 Diastolic blood pressure 72 mm[Hg] Jumana Olsens [employer] Work Phone: [facility] 04-28-2025 13:51-0400 Heart rate 76 /min Jumana Jimenez [employer] Work Phone: [facility] 04-28-2025 13:51-0400 Respiratory rate 16 /min Jumana Jimenez [employer] Work Phone: [facility] 04-28-2025 13:51-0400 SaO2% (BldA) [Mass fraction] 96 % Jumana Jimenez [employer] Work Phone: [facility] 04-28-2025 13:51-0400 Systolic blood pressure 117 mm[Hg] Jumana Jimenez [employer] Work Phone: [facility] 01-01-2025 08:24-0400 Body height 175.3 cm Jumana Jimenez [employer] Work Phone: [facility] 01-01-2025 08:24-0400 Body mass index (BMI) [Ratio] 23.75 kg/m2 Jumana Olsens [employer] Work Phone: [facility] 01-01-2025 08:24-0400 Body weight 72.94 kg Jumana Olsens [employer] Work Phone: [facility] 01-01-2025 08:24-0400 Diastolic blood pressure 75 mm[Hg] Jumana Olsens [employer] Work Phone: [facility] 01-01-2025 08:24-0400 Heart rate 76 /min Jumana Olsens [employer] Work Phone: [facility] 01-01-2025 08:24-0400 Respiratory rate 16 /min Jumana Jimenez [employer] Work Phone: [facility] 01-01-2025 08:24-0400 SaO2% (BldA) [Mass fraction] 97 % Jumana Jimenez [employer] Work Phone: [facility] 01-01-2025 08:24-0400 Systolic blood pressure 115 mm[Hg] Jumana Olsens [employer] Work Phone: [facility] 11-14-2024 16:17-0400 Body height 175.3 cm Robert Shank [employer] Work Phone: [facility] 11-14-2024 16:17-0400 Body mass index (BMI) [Ratio] 22.89 kg/m2 Robert Shank [employer] Work Phone: [facility] 11-14-2024 16:17-0400 Body temperature 97.5 [degF] Robert Shank [employer] Work Phone: [facility] 11-14-2024 16:17-0400 Body weight 70.31 kg Robert Shank [employer] Work Phone: [facility] 11-14-2024 16:17-0400 Diastolic blood pressure 79 mm[Hg] Robert Shank [employer] Work Phone: [facility] 11-14-2024 16:17-0400 Heart rate 78 /min Robert Shank [employer] Work Phone: [facility] 11-14-2024 16:17-0400 Respiratory rate 17 /min Robert Shank [employer] Work Phone: [facility] 11-14-2024 16:17-0400 SaO2% (BldA) [Mass fraction] 96 % Robert Shank [employer] Work Phone: [facility] 11-14-2024 16:17-0400 Systolic blood pressure 110 mm[Hg] Robert Shank [employer] Work Phone: [facility] 07-22-2023 08:48-0500 Body temperature 97.59 [degF] Tomas Mcdonlad MD Work Phone: [facility] 07-22-2023 08:48-0500 Diastolic blood pressure 73 mm[Hg] Tomas Mcdonald MD Work Phone: [facility] 07-22-2023 08:48-0500 Heart rate 79 /min Tomas Mcdonald MD Work Phone: [facility] 07-22-2023 08:48-0500 Respiratory rate 16 /min Tomas Mcdonald MD Work Phone: [facility] 07-22-2023 08:48-0500 SaO2% (BldA) [Mass fraction] 94 % Tomas Mcdonald MD Work Phone: [facility] 07-22-2023 08:48-0500 Systolic blood pressure 113 mm[Hg] Tomas Mcdonald MD Work Phone: [facility] 07-22-2023 04:36-0500 Body height 175.3 cm Tomas Mcdonald MD Work Phone: [facility] 07-22-2023 04:36-0500 Body mass index (BMI) [Ratio] 22.56 kg/m2 Tomas Mcdonald MD Work Phone: [facility] 07-22-2023 04:36-0500 Body weight 69.3 kg Tomas Mcdonald MD Work Phone: [facility] 2022 08:05-0500 Body height 175.3 cm Lynn Lemus MD Work Phone: [facility] 2022 08:05-0500 Body mass index (BMI) [Ratio] 23.78 kg/m2 Lynn Lemus MD Work Phone: [facility] 2022 08:05-0500 Body temperature 98.4 [degF] Lynn Lemus MD Work Phone: [facility] 2022 08:05-0500 Body weight 73.03 kg Lynn Lemus MD Work Phone: [facility] 2022 08:05-0500 Diastolic blood pressure 68 mm[Hg] Lynn Lemus MD Work Phone: [facility] 2022 08:05-0500 Heart rate 77 /min Lynn Lemus MD Work Phone: [facility] 2022 08:05-0500 Respiratory rate 16 /min Lynn Lemus MD Work Phone: [facility] 2022 08:05-0500 SaO2% (BldA) [Mass fraction] 98 % Lynn Lemus MD Work Phone: [facility] 2022 08:05-0500 Systolic blood pressure 118 mm[Hg] Lynn Lemus MD Work Phone: [facility] 04-06-2022 12:42-0400 Body height 175.3 cm Lynn Lemus MD Work Phone: [facility] 04-06-2022 12:42-0400 Body mass index (BMI) [Ratio] 25.1 kg/m2 Lynn Lemus MD Work Phone: [facility] 04-06-2022 12:42-0400 Body temperature 98.1 [degF] Lynn Lemus MD Work Phone: [facility] 04-06-2022 12:42-0400 Body weight 77.11 kg Lynn Lemus MD Work Phone: [facility] 04-06-2022 12:42-0400 Diastolic blood pressure 73 mm[Hg] Lynn Lemus MD Work Phone: [facility] 04-06-2022 12:42-0400 Heart rate 84 /min Lynn Lemus MD Work Phone: [facility] 04-06-2022 12:42-0400 Respiratory rate 16 /min Lynn Lemus MD Work Phone: [facility] 04-06-2022 12:42-0400 SaO2% (BldA) [Mass fraction] 95 % Lynn Lemus MD Work Phone: [facility] 04-06-2022 12:42-0400 Systolic blood pressure 121 mm[Hg] Lynn Lemus MD Work Phone: [facility] 10-30-2021 01:40-0400 Diastolic blood pressure 80 mm[Hg] No Pcp Required [facility] 10-30-2021 01:40-0400 Heart rate 85 /min No Pcp Required [facility] 10-30-2021 01:40-0400 Respiratory rate 18 /min No Pcp Required [facility] 10-30-2021 01:40-0400 SaO2% (BldA) [Mass fraction] 98 % No Pcp Required [facility] 10-30-2021 01:40-0400 Systolic blood pressure 121 mm[Hg] No Pcp Required [facility] 10-30-2021 00:56-0400 Body height 175.2 cm No Pcp Required [facility] 10-30-2021 00:56-0400 Body temperature 98.42 [degF] No Pcp Required [facility] 10-30-2021 00:56-0400 Body weight 77 kg No Pcp Required [facility] Encounters Encounter Date Encounter Type Care Provider Facility Start: 05-26-2025 End: 05-26-2025 Telemedicine consultation with patient Jumana Olsens [employer] Work Phone: [facility] Comment on above: Moderate episode of recurrent major depressive disorder (HCC); Paranoia (HCC) Start: 05-26-2025 End: 05-26-2025 ambulatory ROBERT GARY [facility] Start: 04-28-2025 End: 04-28-2025 Office outpatient visit 25 minutes Jumana Olsens [employer] Work Phone: [facility] Comment on above: Moderate episode of recurrent major depressive disorder (HCC) (Primary Dx); Borderline personality disorder (HCC); Paranoia (HCC); FDC current use of antipsychotic medication Start: 04-28-2025 End: 04-28-[address] [facility] Start: 01-28-2025 End: 01-28-2025 Telemedicine consultation with patient Jumana Jimenez [employer] Work Phone: [facility] Comment on above: Moderate episode of recurrent major depressive disorder (HCC); Generalized anxiety disorder Start: 01-28-2025 End: 01-28-[address] [facility] Start: 01-08-2025 End: 01-08-2025 Office outpatient visit 25 minutes Jumana Jimenez [employer] Work Phone: [facility] Comment on above: Moderate episode of recurrent major depressive disorder (HCC); Generalized anxiety disorder Start: 01-08-2025 End: 01-08-[address] [facility] Start: 01-01-2025 End: 01-01-2025 Office outpatient new 45 minutes Robert Hernandez [employer] Work Phone: [facility] Comment on above: Moderate episode of recurrent major depressive disorder (HCC) (Primary Dx); Attention deficit hyperactivity disorder (ADHD), predominantly inattentive type; Borderline personality disorder (HCC); Generalized anxiety disorder Start: 01-01-2025 End: 01-01-[address] [facility] Start: 11-14-2024 End: 11-14-2024 Office outpatient visit 25 minutes Robert Hernandez [employer] Work Phone: [facility] Comment on above: Moderate episode of recurrent major depressive disorder (HCC) (Primary Dx); Attention deficit hyperactivity disorder (ADHD), predominantly inattentive type; Borderline personality disorder (HCC); Healthcare maintenance; Insomnia, unspecified type Start: 11-14-2024 End: 11-14-2024 Patient encounter status Robert Hernandez [employer] Work Phone: [facility] Start: 11-14-2024 End: 11-14-[address] [facility] Start: 07-22-2023 End: 07-22-2023 ambulatory [facility] Start: 07-21-2023 End: 07-22-2023 Subsequent hospital visit by physician Yajaira [facility] Work Phone: [facility] Start: 07-21-2023 End: 07-22-2023 Emergency department patient visit CANDY BELTRÁN GILBERT [facility] Start: 2022 End: 2022 Office outpatient visit 15 minutes Lynn Lemus MD Work Phone: [facility] Comment on above: Erectile dysfunction , unspecified erectile dysfunction type (Primary Dx) Start: 08-10-2022 End: 08-10-2022 Office outpatient visit 10 minutes Nacho Moreno CNP Work Phone: [facility] Comment on above: Rotator cuff tendini tis, left (Primary Dx); Chronic shoulder bursitis, left Start: 04-06-2022 End: 04-06-2022 Initial preventive medicine new pt age 18-39yrs Lynn Lemus MD Work Phone: [facility] Comment on above: Routine medical exam (Primary Dx); Attention deficit hyperactivity disorder (ADHD), predominantly inattentive type; Moderate episode of recurrent major depressive disorder (HCC) Start: 04-06-2022 End: 04-06-2022 Patient encounter status Lynn Lemus MD Work Phone: [facility] Start: 03-22-2022 End: 03-26-2022 ambulatory PHYSICIAN [facility] Start: 03-22-2022 End: 03-22-2022 Office outpatient new 20 minutes Nacho Moreno CNP Work Phone: [facility] Comment on above: Biceps tendinitis of left shoulder (Primary Dx); Acute shoulder bursitis, left Start: 10-30-2021 End: 10-30-2021 Emergency department patient visit Mirza Izaiahsreekanth [facility] Emergency 14 Procedures Date Procedure Procedure Detail Performing Clinician Start: 07-22-2023 Comprehensive metabo lic panel Guillermina Montejo MD Work Phone: Start: 08-10-2022 Arthrocentesis aspir &/inj major jt/bursa w/o us Nacho Moreno CNP Work Phone: Start: 03-22-2022 Arthrocentesis aspir &/inj major jt/bursa w/o us Nacho Moreno CNP Work Phone: Plan of Treatment Date Care Activity Detail Author Start: 2060 RSV Vaccines (1 - 1- dose 75+ series) RSV Vaccines (1 - 1-dose 75+ series) [facility] Start: 10-08-2035 Administration of he rpes zoster vaccine Zoster Vaccines (1 of 2) [facility] Start: 10-24-2033 Tetanus vaccination Tetanus: Every 1 0yrs [facility] Start: 10-24-2033 Vaccination for diphtheria, pertussis, and tetanus Tetanus/Diphtheria/Pert ussis (2 - Td or Tdap) [facility] Start: 09-16-2025 Depression Remission Assessment (PHQ9) Depression Remission Assessment (PHQ9) [facility] Start: 06-23-2025 End: 06-23-2025 Telemedicine consultation with patient 06/23/2025 2:30 PM EST Telemedicine [facility] [address] [place] [id number] Jumana Jimenez, NENA Marquez [address] [place] [id number] [facility] Start: 05-26-2025 End: 05-26-2025 Telemedicine consultation with patient 05/26/2025 2:30 PM EDT Telemedicine [facility] [address] [place] [address] Jumana Jimenez, NENA Marquez [address] [place] [id number] [facility] Start: 04-28-2025 End: 04-28-2025 Patient encounter procedure 04/28/2025 2:00 PM EDT Office Visit [facility] [place] [address] Jumana Jimenez, [employer] [address] Marquez [address] [place] [id number] [facility] Start: 03-31-2025 COVID-19 Vaccine () COVID-19 Vaccine () [facility] Start: 03-31-2025 Influenza vaccination [facility] Start: 01-28-2025 End: 01-28-2025 Telemedicine consultation with patient 01/28/2025 2:00 PM EDT Telemedicine [facility] [address] [place] [address] [place] [id number] Jumana Jimenez, [employer] [address] Alyx Marquez [address] [place] [id number] [facility] Start: 01-08-2025 End: 01-08-2025 Telemedicine consultation with patient 01/08/2025 7:00 AM EDT Telemedicine [facility] [address] [facility] [place] [id number] Jumana Jimenez, SUPERVISOR PERSONNEL [employer]ERKS [address] [place] [id number] [facility] Start: 12-05-2024 End: 12-05-2024 Patient encounter procedure 12/05/2024 7:30 AM EDT Office Visit [facility] [address] [facility] [place] [id number] Jumana Jimenez, SUPERVISOR [employer]ERKS [address] Marquez [address] [place] [id number] [facility] Start: 03-31-2024 COVID-19 Vaccine () COVID-19 Vaccine () [facility] Start: 04-14-2023 End: 04-14-2023 Patient encounter procedure 04/14/2023 Office Visit Primary Care Lynn Lemus MD [address] [id number] [facility] Start: 04-06-2023 History and physical examination, annual for health maintenance Wellness Visit [facility] Start: 11-03-2022 End: 11-03-2022 Patient encounter procedure 11/03/2022 Office Visit [facility] Start: 2022 End: 2022 Patient encounter procedure 2022 Office Visit Primary Care Lynn Lemus MD [address] [phone] [facility] Start: 04-19-2022 End: 04-19-2022 Patient encounter procedure 04/19/2022 Office Visit Sports Medicine Nacho Moreno, SUPERVISOR [employer]KS [address] [facility] [address] [place] [address] [facility] Start: 03-31-2022 Influenza vaccination Sequenti al Influenza Vaccine (#1) [facility] Start: 2012 Vaccination for aurelio n papillomavirus HPV Vaccines (1 - 3-dose SCDM series) [facility] Start: 10-08-2003 Hepatitis C screening Hepatitis C Sc reening [facility] Start: 2000 HIV screening HIV Screening [facility] Start: 1998 Varicella vaccination Varicell a Vaccines (1 of 2 - 13+ 2-dose series) [facility] Start: 1997 Depression screening using PHQ-9 (Patient Health Questionnaire 9) score Depression Screening (PHQ-2/9) [facility] Start: 1988 History and physical examination, annual for health maintenance Wellness Visit [facility] Start: 1986 Bzorpmo-fpoji-zeasup a vaccination MMR Vaccines (1 of 1 - Standard series) [facility] Start: 04-09-1986 COVID-19 Vaccine (#1) COVID-19 Vacci ne (#1) [facility] Start: 1985 Tetanus vaccination Tetanus: Every 1 0yrs [facility] End: 11-14-2025 Complete blood count with white cell differential, manual CBC and Differential Lab Routine Healthcare maintenance 1 Occurrences starting 11/14/2024 until 11/14/2025 [facility] Comment on above: 1 Occurrences starti ng 11/14/2024 until 11/14/2025 End: 04-28-2026 Complete blood count with white cell differential, manual CBC and Differential Lab Routine long term current use of antipsychotic medication 1 Occurrences starting 04/28/2025 until 04/28/2026 [facility] Work Phone: Comment on above: 1 Occurrences starti ng 04/28/2025 until 04/28/2026 End: 11-14-2025 Comprehensive metabolic 2000 panel - Serum or Plasma Comprehensive Metabolic Panel Lab Routine Healthcare maintenance 1 Occurrences starting 11/14/2024 until 11/14/2025 [facility] Comment on above: 1 Occurrences starti ng 11/14/2024 until 11/14/2025 End: 04-28-2026 Comprehensive metabolic 2000 panel - Serum or Plasma Comprehensive Metabolic Panel Lab Routine long term current use of antipsychotic medication 1 Occurrences starting 04/28/2025 until 04/28/2026 [facility] Comment on above: 1 Occurrences starti ng 04/28/2025 until 04/28/2026 End: 04-06-2023 Hemoglobin A1c/Hemoglobin.total in Blood Hemoglobin A1c Lab Routine Routine medical exam 1 Occurrences starting 04/06/2022 until 04/06/2023 [facility] Work Phone: Comment on above: 1 Occurrences starti ng 04/06/2022 until 04/06/2023 Hemoglobin A1c/Hemoglobin.total in Blood Hemoglobin A1c Lab Routine Routine medical exam 04/06/2022 1:25 PM EDT [facility] End: 04-28-2026 Hemoglobin A1c/Hemoglobin.total in Blood Hemoglobin A1c Lab Routine long term current use of antipsychotic medication 1 Occurrences starting 04/28/2025 until 04/28/2026 [facility] Comment on above: 1 Occurrences starti ng 04/28/2025 until 04/28/2026 End: 11-14-2025 Lipid 1996 panel - Serum or Plasma Lipid Panel Lab Routine Healthcare maintenance 1 Occurrences starting 11/14/2024 until 11/14/2025 [facility] Work Phone: Comment on above: 1 Occurrences starti ng 11/14/2024 until 11/14/2025 End: 04-28-2026 Lipid 1996 panel - Serum or Plasma Lipid Panel Lab Routine [facility]DC current use of antipsychotic medication 1 Occurrences starting 04/28/2025 until 04/28/2026 [facility] Comment on above: 1 Occurrences starti ng 04/28/2025 until 04/28/2026 End: 04-28-2026 Thyrotropin [Units/volume] in Serum or Plasma TSH with Reflex Free T4 Lab Routine Moderate episode of recurrent major depressive disorder (HCC) 1 Occurrences starting 04/28/2025 until 04/28/2026 [facility] Comment on above: 1 Occurrences starti ng 04/28/2025 until 04/28/2026 End: 04-28-2026 Vitamin D, 25-hydroxy measurement Vitamin D, Total, 25-OH Lab Routine Moderate episode of recurrent major depressive disorder (HCC) 1 Occurrences starting 04/28/2025 until 04/28/2026 [facility] Comment on above: 1 Occurrences starti ng 04/28/2025 until 04/28/2026 Payers Date Payer Category Payer Blue Cross Blue Shie ld (Indemnity or Managed Care) - Out of State [place] OF [place] [facility] [place] [id number] 2023 Unknown [id number] 2021 Unknown 2021 Unknown [id number] 1985 Unknown [id number] 1985 Unknown [id number] 902 1985 Unknown [id number] 903 1985 Unknown [id number] 903 1985 Unknown [id number] 2..[id number] 90 1985 Unknown [id number] [id number]. 90 1985 Unknown [id number]. 903 1985 Unknown [id number] 903 Social History Date Type Detail Facility [facility] Tobacco smoking consumption unknown [facility] Start: 1985 Sex Assigned At Not on file [facility] Start: 03-12-2022 End: 2022 Exposure to SARS-CoV-2 (event) Not sure [facility] Start: 04-06-2022 Tobacco smoking status NHIS Ex-smoker [facility] End: 07-31-2016 History of tobacco use Current smoker [facility] End: 07-31-2016 History of tobacco use Cigarette Smoker [facility] Start: 04-06-2022 Tobacco use and exposure Smokeless tobacco non-user [facility] Start: 04-06-2022 End: 05-26-2025 Alcohol intake Current drinker of alcohol (finding) [facility] Start: 04-06-2022 Alcohol Comment rarely [facility] Start: 07-22-2023 End: 11-14-2024 History of Social function [facility] Start: 07-22-2023 End: 11-14-2024 Tobacco use panel [facility] Start: 03-22-2022 Gender identity Identifies as male gender (finding) [facility] Start: 04-05-2022 Sexual orientation Heterosexual (finding) [facility] Frequency of Communication with Friends and Family Not on file [facility] How hard is it for y ou to pay for the very basics like food, housing, medical care, and heating Not very hard [facility] (I/We) worried trey er (my/our) food would run out before (I/we) got money to buy more. Never true [facility] Clinical Notes 03-22-2022 to 05-26-2025 Amanda Jimenezney NENA Zavala - 05/26/2025 2:33 PM Jumana Argueta CNP - 04/28/2025 1:51 PM Jumnaa Argueta CNP - 01/28/2025 1:57 PM Isela Stearns MA - 04/07/2022 10:58 AM EDT Note Date & Type Note Facility 05-26-2025 Note Patient Name: Sebastian Molina MR #: [id number] : 1985 Chief Complaint: Medication and symptom review/management Interval History: 05/26/2025 Patient presents via televideo for follow up exam. I discussed risks, benefits and alternatives of an audiovisual telemedicine consultation with the patient (and any accompanying persons) including the risks that the patient's personal health details and medical records will be discussed over real-time, synchronous, interactive audiovideo technology, the visit will not be recorded without the express consent of both the provider and the patient, and that there are inherent diagnostic limitations compared to [id number] evaluations. We elected to proceed with the audiovisual telemedicine consultation. Patient is engaged and cooperative during conversation. States he is tolerating the medication well. Symptoms are stable and have not worsened. Denies any side effects of the medication. Decreased dose to 10 mg has been helpful, denies any ongoing restlessness. His symptoms are stable however mild paranoia remain. Anxiety: stable Depression: improving Irritability: stable Sleeping well Appetite: wnl Aggressive behaviors: denies Paranoia: none Risky behaviors: none Hypomanic/manic episodes: none AVH: none Denies any Suicidal Ideation or Homicidal Ideation Current stressors: work stressors Previous Visit: 04/28/2025 Patient presents for follow up exam. States he is tolerating the medication well but did stop it due to increased weight gain. He restarted it as this affected him at work with his behaviors. He would still like to take something different. States he continues to have mood fluctuations. He reports he was being 'targeted' by his ex. States this is not 'gang stalking' as he mentioned before and did more research as to which one she was doing to him. Previously thought this was considered gang stalking but now feels its targeting. He continues to have some paranoia 'but its justified by the evidence of her actions. States she found his camera and stared into it. He feels there could be a connection with the farmworker livestock who is now living by him and his ex. He is concerned that she may be having the farmworker livestock watching what he is doing. Denies any Suicidal Ideation or Homicidal Ideation Current Medications: Medications Prior to Visit[1] Psychiatric ROS: Negative unless noted above. Review of Systems: Constitutional: Denies fever, chills, diaphoresis, malaise Eyes: Denies blurred vision, double vision Neurological: Denies headache, photophobia, weakness, numbness CVS: Denies chest pain or palpitations Respiratory: Denies dyspnea or cough GI: Denies nausea, vomiting, constipation, or diarrhea Integumentary: Denies itching or rash Endocrine: Denies heat/cold intolerance or weight loss/weight gain Mental Status Evaluation: General Appearance & Behavior: age appropriate, pleasant, cooperative, good eye contact Psychomotor Activity: no psychomotor abnormalities or muscle atrophy noted Speech: normal rate, rhythym, volume, and spontaneity Flow of Thought: linear and goal directed Thought Associations: Intact Content of Thought: No evidence of suicidal ideations/homicidal ideations/psychosis Mood: okay Affect: euthymic Insight: intact Judgment: intact Orientation: alert and oriented to person, place, time, and circumstances Memory: intact recent and remote Concentration: intact Language: fluent Fund of Knowledge: estimated average intelligence Assessment and Plan/Recommendations Diagnoses/Treatment Plan: continue tapering abilify dose to 12.5 mg then 15 mg Diagnoses and all orders for this visit: Moderate episode of recurrent major depressive disorder (HCC) Paranoia (HCC) Pharmacological management: Alternative medication plans were discussed with the patient/guardian. All side effects or potential adverse effects were discussed with the patient/guardian. Parent/guardian consented to medication initiation or continuation of the following: Education: Continue medication as prescribed. Please report any side effects or intolerability of the medication. Report any new or worsening symptoms 11/14/2024 4:23 PM 01/01/2025 8:00 AM REE-7 REE-7 Score 16 14 11/14/2024 4:21 PM 01/01/2025 8:00 AM PHQ-9 PHQ-9 Total Score 20 16 Follow up in: weeks or sooner if needed MyChart [employer] is a great way to communicate with your provider, on non urgent concerns. Please consider sending your provider a [employer] message with your non-urgent questions. Please do not use [employer] to send any messages requiring urgent or emergent attention. By selecting to send a message, you acknowledge you are seeking medical advice for non-urgent issues and that you are aware that you may not get a response for 2 business days. Responses are not monitored evenings and weekends. For issues requiring urgent (more content not included)... [facility] 05-26-2025 History of Presen t illness Narrative Images from the original note were not included. Patient Name: Sebastian Molina MR #: [id number] : 1985 Chief Complaint: Medication and symptom review/management Interval History: 05/26/2025 Patient presents via televideo for follow up exam. I discussed risks, benefits and alternatives of an audiovisual telemedicine consultation with the patient (and any accompanying persons) including the risks that the patient's personal health details and medical records will be discussed over real-time, synchronous, interactive audiovideo technology, the visit will not be recorded without the express consent of both the provider and the patient, and that there are inherent diagnostic limitations compared to [id number] evaluations. We elected to proceed with the audiovisual telemedicine consultation. Patient is engaged and cooperative during conversation. States he is tolerating the medication well. Symptoms are stable and have not worsened. Denies any side effects of the medication. Decreased dose to 10 mg has been helpful, denies any ongoing restlessness. His symptoms are stable however mild paranoia remain. Anxiety: stable Depression: improving Irritability: stable Sleeping well Appetite: wnl Aggressive behaviors: denies Paranoia: none Risky behaviors: none Hypomanic/manic episodes: none AVH: none Denies any Suicidal Ideation or Homicidal Ideation Current stressors: work stressors Previous Visit: 04/28/2025 Patient presents for follow up exam. States he is tolerating the medication well but did stop it due to increased weight gain. He restarted it as this affected him at work with his behaviors. He would still like to take something different. States he continues to have mood fluctuations. He reports he was being 'targeted' by his ex. States this is not 'gang stalking' as he mentioned before and did more research as to which one she was doing to him. Previously thought this was considered gang stalking but now feels its targeting. He continues to have some paranoia 'but its justified by the evidence of her actions. States she found his camera and stared into it. He feels there could be a connection with the farmworker livestock who is now living by him and his ex. He is concerned that she may be having the farmworker livestock watching what he is doing. Denies any Suicidal Ideation or Homicidal Ideation Current Medications: Medications Prior to Visit[1] Psychiatric ROS: Negative unless noted above. Review of Systems: Constitutional: Denies fever, chills, diaphoresis, malaise Eyes: Denies blurred vision, double vision Neurological: Denies headache, photophobia, weakness, numbness CVS: Denies chest pain or palpitations Respiratory: Denies dyspnea or cough GI: Denies nausea, vomiting, constipation, or diarrhea Integumentary: Denies itching or rash Endocrine: Denies heat/cold intolerance or weight loss/weight gain Mental Status Evaluation: General Appearance & Behavior: age appropriate, pleasant, cooperative, good eye contact Psychomotor Activity: no psychomotor abnormalities or muscle atrophy noted Speech: normal rate, rhythym, volume, and spontaneity Flow of Thought: linear and goal directed Thought Associations: Intact Content of Thought: No evidence of suicidal ideations/homicidal ideations/psychosis Mood: okay Affect: euthymic Insight: intact Judgment: intact Orientation: alert and oriented to person, place, time, and circumstances Memory: intact recent and remote Concentration: intact Language: fluent Fund of Knowledge: estimated average intelligence Assessment and Plan/Recommendations Diagnoses/Treatment Plan: continue tapering abilify dose to 12.5 mg then 15 mg Diagnoses and all orders for this visit: Moderate episode of recurrent major depressive disorder (HCC) Paranoia (HCC) Pharmacological management: Alternative medication plans were discussed with the patient/guardian. All side effects or potential adverse effects were discussed with the patient/guardian. Parent/guardian consented to medication initiation or continuation of the following: Education: Continue medication as prescribed. Please report any side effects or intolerability of the medication. Report any new or worsening symptoms 11/14/2024 4:23 PM 01/01/2025 8:00 AM REE-7 REE-7 Score 16 14 11/14/2024 4:21 PM 01/01/2025 8:00 AM PHQ-9 PHQ-9 Total Score 20 16 Follow up in: weeks or sooner if needed [employer] is a great way to communicate with your provider, on non urgent concerns. Please consider sending your provider a [employer] message with your non-urgent questions. Please do not use [employer] to send any messages requiring urgent or emergent attention. By selecting to send a message, you acknowledge you are seeking medical advice for non-urgent issues and that you are aware that you may not get a response for 2 business days. Responses are not monitored evenings and weekends. For issues requiring urgent or emergent attention, please call our office at to speak to the provider on-call or call 911. Treatment options and alternatives reviewed with patient. Risks, benefits, side effects of all psychiatric medications discussed with patient and informed consent obtained. All questions were answered. Jumana Jimenez CNP 05/26/2025 3:06 PM [1] Outpatient Medications Prior to Visit Medication Sig Dispense Refill ARIPiprazole (ABILIFY) 10 MG tablet Take 1 (one) tablet (10 mg total) by mouth daily . 30 tablet 0 traZODone (DESYREL) 150 MG tablet Take 2 (two) tablets (300 mg total) by mouth nightly . 90 tablet 1 No facility-administered medications prior to visit. documented in this encounter [facility] 04-28-2025 Note Behavioral Health Ou tpatient Progress Note Patient Name: Sebastian Molina MR #: [id number] : 1985 Chief Complaint: Medication and symptom review/management Interval History: 04/28/2025 Patient presents for follow up exam. States he is tolerating the medication well but did stop it due to increased weight gain. He restarted it as this affected him at work with his behaviors. He would still like to take something different. States he continues to have mood fluctuations. He reports he was being 'targeted' by his ex. States this is not 'gang stalking' as he mentioned before and did more research as to which one she was doing to him. Previously thought this was considered gang stalking but now feels its targeting. He continues to have some paranoia 'but its justified by the evidence of her actions. States she found his camera and stared into it. He feels there could be a connection with the farmworker livestock who is now living by him and his ex. He is concerned that she may be having the farmworker livestock watching what he is doing. Denies any Suicidal Ideation or Homicidal Ideation Previous Visit: 01/28/2025 I discussed risks, benefits and alternatives of a telemedicine video consultation with the patient (and any accompanying persons) including the risks that the patient's personal health details and medical records will be discussed over real-time, synchronous, interactive audio technology, the visit will not be recorded without the express consent of both the provider and the patient, and that there are inherent diagnostic limitations compared to [id number] evaluations. We elected to proceed with the telemedicine video consultation. Patient is engaged and cooperative during conversation. Patient is engaged and cooperative during conversation. States he is tolerating the medication well. Symptoms are stable and have not worsened but does feel he could be better controlled with higher dosage. Considering prozac as well for ocd tendencies. Denies any recent mood changes or fluctuations. Denies any new or ongoing complaints/concerns. Denies any side effects of the medication. He is planning on testing with [id number] for adhd. Denies any Suicidal Ideation or Homicidal Ideation Current stressors: going through the process of a new job. Current Medications: Medications Prior to Visit[1] Psychiatric ROS: Negative unless noted above. Review of Systems: Constitutional: Denies fever, chills, diaphoresis, malaise Eyes: Denies blurred vision, double vision ENT: Denies nasal congestion, sore throat Neurological: Denies headache, photophobia, weakness, numbness CVS: Denies chest pain or palpitations Respiratory: Denies dyspnea or cough Musculoskeletal: Denies joint pain or muscle aches GI: Denies nausea, vomiting, constipation, or diarrhea Integumentary: Denies itching or rash Endocrine: Denies heat/cold intolerance or weight loss/weight gain Physical Exam: General: Alert and oriented to person, place, and time. Is in no acute distress. Well developed, hydrated, and nourished. Appears stated age. Skin: Appropriate color for ethnicity. Head: The head is normocephalic and atraumatic. Eyes: PERRLA Respiratory: Respirations are non labored. Musculoskeletal: Active ROM in all four extremities. Neurological: Motor function is normal in upper and lower extremities. No gait abnormalities are appreciated. Mental Status Evaluation: General Appearance & Behavior: age appropriate, pleasant, cooperative, good eye contact Grooming & Hygiene: edentulous Psychomotor Activity: no psychomotor abnormalities or muscle atrophy noted Speech: normal rate, rhythym, volume, and spontaneity Flow of Thought: linear and goal directed Thought Associations: Intact Content of Thought: paranoia Mood: okay Affect: mood congruent Insight: fair Judgment: fair Orientation: alert and oriented to person, place, time, and circumstances Memory: Reports poor memory Concentration: reduced Language: fluent Fund of Knowledge: estimated average intelligence Assessment and Plan/Recommendations Diagnoses/Treatment Plan: Diagnoses and all orders for this visit: 1. Moderate episode of recurrent major depressive disorder (HCC) (Primary) - ARIPiprazole (ABILIFY) 5 MG tablet; Take 1 (one) tablet (5 mg total) by mouth daily . Dispense: 30 tablet; Refill: 0 - TSH with Reflex Free T4; Future - Vitamin D, Total, 25-OH; Future 2. Borderline personality disorder (HCC) -therapy encouraged 3. Paranoia (HCC) - ARIPiprazole (ABILIFY) 5 MG tablet; Take 1 (one) tablet (5 mg total) by mouth daily . Dispense: 30 tablet; Refill: 0 4. long term current use of antipsychotic medication - CBC and Differential; Future - Comprehensive Metabolic Panel; Future - Hemoglobin A1c; Future - Lipid Panel; Future Pharmacological management: Alternative medication plans were discussed with the patient/guardian. All s (more content not included)... [facility] 04-28-2025 History of Presen t illness Narrative Images from the original note were not included. Behavioral Health Outpatient Progress Note Patient Name: Sebastian Molina MR #: [id number] : 1985 Chief Complaint: Medication and symptom review/management Interval History: 04/28/2025 Patient presents for follow up exam. States he is tolerating the medication well but did stop it due to increased weight gain. He restarted it as this affected him at work with his behaviors. He would still like to take something different. States he continues to have mood fluctuations. He reports he was being 'targeted' by his ex. States this is not 'gang stalking' as he mentioned before and did more research as to which one she was doing to him. Previously thought this was considered gang stalking but now feels its targeting. He continues to have some paranoia 'but its justified by the evidence of her actions. States she found his camera and stared into it. He feels there could be a connection with the farmworker livestock who is now living by him and his ex. He is concerned that she may be having the farmworker livestock watching what he is doing. Denies any Suicidal Ideation or Homicidal Ideation Previous Visit: 01/28/2025 I discussed risks, benefits and alternatives of a telemedicine video consultation with the patient (and any accompanying persons) including the risks that the patient's personal health details and medical records will be discussed over real-time, synchronous, interactive audio technology, the visit will not be recorded without the express consent of both the provider and the patient, and that there are inherent diagnostic limitations compared to [id number] evaluations. We elected to proceed with the telemedicine video consultation. Patient is engaged and cooperative during conversation. Patient is engaged and cooperative during conversation. States he is tolerating the medication well. Symptoms are stable and have not worsened but does feel he could be better controlled with higher dosage. Considering prozac as well for ocd tendencies. Denies any recent mood changes or fluctuations. Denies any new or ongoing complaints/concerns. Denies any side effects of the medication. He is planning on testing with [id number] for adhd. Denies any Suicidal Ideation or Homicidal Ideation Current stressors: going through the process of a new job. Current Medications: Medications Prior to Visit[1] Psychiatric ROS: Negative unless noted above. Review of Systems: Constitutional: Denies fever, chills, diaphoresis, malaise Eyes: Denies blurred vision, double vision ENT: Denies nasal congestion, sore throat Neurological: Denies headache, photophobia, weakness, numbness CVS: Denies chest pain or palpitations Respiratory: Denies dyspnea or cough Musculoskeletal: Denies joint pain or muscle aches GI: Denies nausea, vomiting, constipation, or diarrhea Integumentary: Denies itching or rash Endocrine: Denies heat/cold intolerance or weight loss/weight gain Physical Exam: General: Alert and oriented to person, place, and time. Is in no acute distress. Well developed, hydrated, and nourished. Appears stated age. Skin: Appropriate color for ethnicity. Head: The head is normocephalic and atraumatic. Eyes: PERRLA Respiratory: Respirations are non labored. Musculoskeletal: Active ROM in all four extremities. Neurological: Motor function is normal in upper and lower extremities. No gait abnormalities are appreciated. Mental Status Evaluation: General Appearance & Behavior: age appropriate, pleasant, cooperative, good eye contact Grooming & Hygiene: edentulous Psychomotor Activity: no psychomotor abnormalities or muscle atrophy noted Speech: normal rate, rhythym, volume, and spontaneity Flow of Thought: linear and goal directed Thought Associations: Intact Content of Thought: paranoia Mood: okay Affect: mood congruent Insight: fair Judgment: fair Orientation: alert and oriented to person, place, time, and circumstances Memory: Reports poor memory Concentration: reduced Language: fluent Fund of Knowledge: estimated average intelligence Assessment and Plan/Recommendations Diagnoses/Treatment Plan: Diagnoses and all orders for this visit: 1. Moderate episode of recurrent major depressive disorder (HCC) (Primary) - ARIPiprazole (ABILIFY) 5 MG tablet; Take 1 (one) tablet (5 mg total) by mouth daily . Dispense: 30 tablet; Refill: 0 - TSH with Reflex Free T4; Future - Vitamin D, Total, 25-OH; Future 2. Borderline personality disorder (HCC) -therapy encouraged 3. Paranoia (HCC) - ARIPiprazole (ABILIFY) 5 MG tablet; Take 1 (one) tablet (5 mg total) by mouth daily . Dispense: 30 tablet; Refill: 0 4. FDC current use of antipsychotic medication - CBC and Differential; Future - Comprehensive Metabolic Panel; Future - Hemoglobin A1c; Future - Lipid Panel; Future Pharmacological management: Alternative medication plans were discussed with the patient/guardian. All side effects or potential adverse effects were discussed with the patient/guardian. Parent/guardian consented to medication initiation or continuation of the following: Education: Continue medication as prescribed. Please report any side effects or intolerability of the medication. Report any new or worsening symptoms 11/14/2024 4:23 PM 01/01/2025 8:00 AM REE-7 REE-7 Score 16 14 11/14/2024 4:21 PM 01/01/2025 8:00 AM PHQ-9 PHQ-9 Total Score 20 16 Follow up in: 4 weeks or sooner if needed [employer] is a great way to communicate with your provider, on non urgent concerns. Please consider sending your provider a [employer] message with your non-urgent questions. Please do not use [employer] to send any messages requiring urgent or emergent attention. By selecting to send a message, you acknowledge you are seeking medical advice for non-urgent issues and that you are aware that you may not get a response for 2 business days. Responses are not monitored evenings and weekends. For issues requiring urgent or emergent attention, please call our office at to speak to the provider on-call or call 911. Treatment options and alternatives reviewed with patient. Risks, benefits, side effects of all psychiatric medications discussed with patient and informed consent obtained. All questions were answered. Jumana Jimenez CNP 04/28/2025 2:17 PM [1] Outpatient Medications Prior to Visit Medication Sig Dispense Refill traZODone (DESYREL) 150 MG tablet Take 2 (two) tablets (300 mg total) by mouth nightly . 90 tablet 1 QUEtiapine (SEROQUEL) 200 MG tablet Take 1 (one) tablet (200 mg total) by mouth nightly . 90 tablet 0 No facility-administered medications prior to visit. documented in this encounter [facility] 01-28-2025 Note Patient Name: Sebastian Molina MR #: [id number] : 1985 Chief Complaint: Medication and symptom review/management Interval History: 01/28/2025 I discussed risks, benefits and alternatives of a telemedicine video consultation with the patient (and any accompanying persons) including the risks that the patient's personal health details and medical records will be discussed over real-time, synchronous, interactive audio technology, the visit will not be recorded without the express consent of both the provider and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 hypervigilant, cannot focus at work or complete chores at home. States that he keeps putting off chores at home and will just lay in bed all day. He does tell me that he does have thoughts of harming himself at times, however has never acted on nor does he have a plan. States he does smoke marijuana, however stopped smoking a week ago. Health Maintenance Topic Date Due HIV Screening Never done Hepatitis C Screening Never done Wellness Visit 04/06/2023 COVID-19 Vaccine ( season) 2024 Influenza Vaccine (Season Ended) 2025 Depression Remission Assessment (PHQ9) 09/16/2025 Tetanus: Every 10yrs 10/24/2033 Pneumococcal Vaccine: Ped or At-Risk Aged Out The following portions of the patient's history were reviewed and updated as appropriate: allergies, current medications, past family history, past medical history, past social history, past surgical history and problem list. Past Medical History: Diagnosis Date ADHD Borderline personality disorder (HCC) Depression Insomnia History reviewed. No pertinent surgical history. Social History[1] Family History Problem Relation Age of Onset No Known Problems Mother No Known Problems Father Stroke Maternal Grandmother Dementia Maternal Grandfather Epilepsy Brother Diabetes Maternal Aunt Allergies[2] Outpatient Medications as of 11/14/2024 Medication Sig [DISCONTINUED] buPROPion (WELLBUTRIN XL) 150 MG 24 hr tablet Take 1 (one) tablet (150 mg total) by mouth daily . [DISCONTINUED] buPROPion (WELLBUTRIN XL) 300 MG 24 hr tablet Take 1 (one) tablet (300 mg total) by mouth daily Take one with the 150 to total 450 . [DISCONTINUED] QUEtiapine (SEROQUEL) 50 MG tablet Take 1 (one) tablet (50 mg total) by mouth nightly . [DISCONTINUED] traZODone (DESYREL) 150 MG tablet Take 2 (two) tablets (300 mg total) by mouth nightly . [DISCONTINUED] lamoTRIgine (LAMICTAL) 100 MG tablet Take 1 (one) tablet (100 mg total) by mouth daily . Review of Systems Review of Systems Objective: BP 110/79 (BP Location: Left arm, Patient Position: Sitting, BP Cuff Size: Adult) Pulse 78 Temp 97.5 F (36.4 C) (Oral) Resp 17 Ht 5' 9 Wt 70.3 kg (155 lb) SpO2 96% BMI 22.89 kg/m Physical Exam Eyes: Extraocular Movements: Extraocular movements intact. Conjunctiva/sclera: Conjunctivae normal. Neck: Vascular: No carotid bruit. Cardiovascular: Rate and Rhythm: Normal rate and regular rhythm. Pulses: Normal pulses. Heart sounds: Normal heart sounds. Pulmonary: Effort: Pulmonary effort is normal. No respiratory distress. Breath sounds: Normal breath sounds. Musculoskeletal: Right lower leg: No edema. Left lower leg: No edema. Neurological: Mental Status: He is alert and oriented to person, place, and time. Psychiatric: Speech: Speech normal. Behavior: Behavior is cooperative. Thought Content: Thought content does not include homicidal or suicidal plan. Assessment/Plan: Problem List Items Addressed This Visit Moderate episode of recurrent major depressive disorder (HCC) - Primary Relevant Medications QUEtiapine (SEROQUEL) 50 MG tablet traZODone (DESYREL) 150 MG tablet Other Relevant Orders Ambulatory referral to Behavioral Health Attention deficit hyperactivity disorder (ADHD), predominantly inattentive type Relevant Medications QUEtiapine (SEROQUEL) 50 MG tablet traZODone (DESYREL) 150 MG tablet Other Relevant Orders Ambulatory referral to Behavioral Health Borderline personality disorder (HCC) Relevant Medications QUEtiapine (SEROQUEL) 50 MG tablet traZODone (DESYREL) 150 MG tablet Other Relevant Orders Ambulatory referral to Behavioral Health Insomnia Relevant Medications traZODone (DESYREL) 150 MG tablet Other Visit Diagnoses Healthcare maintenance Relevant Orders Lipid Panel CBC and Differential Comprehensive Metabolic Panel Discussed with patient, will send refill for Seroquel and trazodone. We did discuss other medication management for him for his ADHD, depression, borderline personality disorder, however he does admit to thoughts of harming himself. Denies active plan or acting on thoughts. Due to this and history of trialing different medications in the past without relief, will send referral to psychiatry. Did send message to try to get patient to be sooner. Discussed with patient if symptoms worsen, or warning signs symptoms reviewed with patient encouraged emergent follow-up. Patient verbalized understanding agreement plan of care. For any medications prescribed today, patient was educated about indications for the medication, how to take the medication and potential side effects of the medication. Wellness examination completed today. Discussed weight loss, diet and exercise and healthy lifestyle. Health recommendations and screenings reviewed and discussed with patient for age. Laboratory levels reviewed and discussed with patient, laboratory orders placed at this time, discussed with patient to be fasting, will notify once resulted. Please note: Portions of this chart may have been created with [employer] voice recognition software. Occasional wrong-word or sound-like substitutions may have occurred due to inherent limitations of the voice recognition software. Please read the chart carefully and recognize, using context, where the substitutions have occurred. Electronically signed by COREY Canales 5:07 PM [1] Social History Tobacco Use Smoking status: Former Current packs/day: 0.00 Types: Cigarettes Quit date: 2016 Years since quittin.2 Smokeless tobacco: Never Vaping Use Vaping status: Never Used Substance Use Topics Alcohol use: Yes Comment: rarely Drug use: Yes Frequency: 7.0 times per week Types: Marijuana, Psilocybin Comment: Pt mostly uses edibles [2] Allergies Allergen Reactions Strattera [Atomoxetine] Other (See Comments) myalgia documented in this encounter [facility] 11-14-2024 Note HPI Chief Complaint Patient presents with Medication Refill Subjective: Sebastian Molina is a 39 y.o. male and is here for annual exam. Has not been seen since 2022. Does have past medical history of ADHD, borderline personality disorder, depression, insomnia. He is requesting medication refill. States that he was on Wellbutrin as well, however stopped this medication 1-2 months ago as he ran out. Has not noticed any effect since stopping medication. He states that he ran out of Seroquel a month ago as well. Notes since stopping this medication he has noticed mood swings are back. Tells me he takes trazodone as needed for sleep. Does have history of ADHD, was on Depakote, Strattera in the past and unfortunately experienced unwanted side effects. He was on the Wellbutrin to help with ADHD, however states it was not helpful. States that he feels very hypervigilant, cannot focus at work or complete chores at home. States that he keeps putting off chores at home and will just lay in bed all day. He does tell me that he does have thoughts of harming himself at times, however has never acted on nor does he have a plan. States he does smoke marijuana, however stopped smoking a week ago. Health Maintenance Topic Date Due HIV Screening Never done Hepatitis C Screening Never done Wellness Visit 04/06/2023 COVID-19 Vaccine ( season) 2024 Influenza Vaccine (Season Ended) 2025 Depression Remission Assessment (PHQ9) 09/16/2025 Tetanus: Every 10yrs 10/24/2033 Pneumococcal Vaccine: Ped or At-Risk Aged Out The following portions of the patient's history were reviewed and updated as appropriate: allergies, current medications, past family history, past medical history, past social history, past surgical history and problem list. Past Medical History: Diagnosis Date ADHD Borderline personality disorder (HCC) Depression Insomnia History reviewed. No pertinent surgical history. Social History[1] Family History Problem Relation Age of Onset No Known Problems Mother No Known Problems Father Stroke Maternal Grandmother Dementia Maternal Grandfather Epilepsy Brother Diabetes Maternal Aunt Allergies[2] Outpatient Medications as of 11/14/2024 Medication Sig [DISCONTINUED] buPROPion (WELLBUTRIN XL) 150 MG 24 hr tablet Take 1 (one) tablet (150 mg total) by mouth daily . [DISCONTINUED] buPROPion (WELLBUTRIN XL) 300 MG 24 hr tablet Take 1 (one) tablet (300 mg total) by mouth daily Take one with the 150 to total 450 . [DISCONTINUED] QUEtiapine (SEROQUEL) 50 MG tablet Take 1 (one) tablet (50 mg total) by mouth nightly . [DISCONTINUED] traZODone (DESYREL) 150 MG tablet Take 2 (two) tablets (300 mg total) by mouth nightly . [DISCONTINUED] lamoTRIgine (LAMICTAL) 100 MG tablet Take 1 (one) tablet (100 mg total) by mouth daily . Review of Systems Review of Systems Objective: BP 110/79 (BP Location: Left arm, Patient Position: Sitting, BP Cuff Size: Adult) Pulse 78 Temp 97.5 degrees F (36.4 degrees C) (Oral) Resp 17 Ht 5' 9 Wt 70.3 kg (155 lb) SpO2 96% BMI 22.89 kg/m Physical Exam Eyes: Extraocular Movements: Extraocular movements intact. Conjunctiva/sclera: Conjunctivae normal. Neck: Vascular: No carotid bruit. Cardiovascular: Rate and Rhythm: Normal rate and regular rhythm. Pulses: Normal pulses. Heart sounds: Normal heart sounds. Pulmonary: Effort: Pulmonary effort is normal. No respiratory distress. Breath sounds: Normal breath sounds. Musculoskeletal: Right lower leg: No edema. Left lower leg: No edema. Neurological: Mental Status: He is alert and oriented to person, place, and time. Psychiatric: Speech: Speech normal. Behavior: Behavior is cooperative. Thought Content: Thought content does not include homicidal or suicidal plan. Assessment/Plan: Problem List Items Addressed This Visit Moderate episode of recurrent major depressive disorder (HCC) - Primary Relevant Medications QUEtiapine (SEROQUEL) 50 MG tablet traZODone (DESYREL) 150 MG tablet Other Relevant Orders Ambulatory referral to Behavioral Health Attention deficit hyperactivity disorder (ADHD), predominantly inattentive type Relevant Medications QUEtiapine (SEROQUEL) 50 MG tablet traZODone (DESYREL) 150 MG tablet Other Relevant Orders Ambulatory referral to Behavioral Health Borderline personality disorder (HCC) Relevant Medications QUEtiapine (SEROQUEL) 50 MG tablet traZODone (DESYREL) 150 MG tablet Other Relevant Orders Ambulatory referral to Behavioral Health Insomnia Relevant Medications traZODone (DESYREL) 150 MG tablet Other Visit Diagnoses Healthcare maintenance Relevant Orders Lipid Panel CBC and Differential Comprehensive Metabolic Panel Discussed with patient, will send refill for Seroquel and trazodone. We did discuss other medication management for him for his ADHD, depression, borderline perso (more content not included)... [facility] 11-14-2024 History of Presen t illness Narrative Images from the original note were not included. HPI Chief Complaint Patient presents with Medication Refill Subjective: Sebastian Molina is a 39 y.o. male and is here for annual exam. Has not been seen since 2022. Does have past medical history of ADHD, borderline personality disorder, depression, insomnia. He is requesting medication refill. States that he was on Wellbutrin as well, however stopped this medication 1-2 months ago as he ran out. Has not noticed any effect since stopping medication. He states that he ran out of Seroquel a month ago as well. Notes since stopping this medication he has noticed mood swings are back. Tells me he takes trazodone as needed for sleep. Does have history of ADHD, was on Depakote, Strattera in the past and unfortunately experienced unwanted side effects. He was on the Wellbutrin to help with ADHD, however states it was not helpful. States that he feels very hypervigilant, cannot focus at work or complete chores at home. States that he keeps putting off chores at home and will just lay in bed all day. He does tell me that he does have thoughts of harming himself at times, however has never acted on nor does he have a plan. States he does smoke marijuana, however stopped smoking a week ago. Health Maintenance Topic Date Due HIV Screening Never done Hepatitis C Screening Never done Wellness Visit 04/06/2023 COVID-19 Vaccine ( season) 2024 Influenza Vaccine (Season Ended) 2025 Depression Remission Assessment (PHQ9) 09/16/2025 Tetanus: Every 10yrs 10/24/2033 Pneumococcal Vaccine: Ped or At-Risk Aged Out The following portions of the patient's history were reviewed and updated as appropriate: allergies, current medications, past family history, past medical history, past social history, past surgical history and problem list. Past Medical History: Diagnosis Date ADHD Borderline personality disorder (HCC) Depression Insomnia History reviewed. No pertinent surgical history. Social History[1] Family History Problem Relation Age of Onset No Known Problems Mother No Known Problems Father Stroke Maternal Grandmother Dementia Maternal Grandfather Epilepsy Brother Diabetes Maternal Aunt Allergies[2] Outpatient Medications as of 11/14/2024 Medication Sig [DISCONTINUED] buPROPion (WELLBUTRIN XL) 150 MG 24 hr tablet Take 1 (one) tablet (150 mg total) by mouth daily . [DISCONTINUED] buPROPion (WELLBUTRIN XL) 300 MG 24 hr tablet Take 1 (one) tablet (300 mg total) by mouth daily Take one with the 150 to total 450 . [DISCONTINUED] QUEtiapine (SEROQUEL) 50 MG tablet Take 1 (one) tablet (50 mg total) by mouth nightly . [DISCONTINUED] traZODone (DESYREL) 150 MG tablet Take 2 (two) tablets (300 mg total) by mouth nightly . [DISCONTINUED] lamoTRIgine (LAMICTAL) 100 MG tablet Take 1 (one) tablet (100 mg total) by mouth daily . Review of Systems Review of Systems Objective: BP 110/79 (BP Location: Left arm, Patient Position: Sitting, BP Cuff Size: Adult) Pulse 78 Temp 97.5 F (36.4 C) (Oral) Resp 17 Ht 5' 9 Wt 70.3 kg (155 lb) SpO2 96% BMI 22.89 kg/m Physical Exam Eyes: Extraocular Movements: Extraocular movements intact. Conjunctiva/sclera: Conjunctivae normal. Neck: Vascular: No carotid bruit. Cardiovascular: Rate and Rhythm: Normal rate and regular rhythm. Pulses: Normal pulses. Heart sounds: Normal heart sounds. Pulmonary: Effort: Pulmonary effort is normal. No respiratory distress. Breath sounds: Normal breath sounds. Musculoskeletal: Right lower leg: No edema. Left lower leg: No edema. Neurological: Mental Status: He is alert and oriented to person, place, and time. Psychiatric: Speech: Speech normal. Behavior: Behavior is cooperative. Thought Content: Thought content does not include homicidal or suicidal plan. Assessment/Plan: Problem List Items Addressed This Visit Moderate episode of recurrent major depressive disorder (HCC) - Primary Relevant Medications QUEtiapine (SEROQUEL) 50 MG tablet traZODone (DESYREL) 150 MG tablet Other Relevant Orders Ambulatory referral to Behavioral Health Attention deficit hyperactivity disorder (ADHD), predominantly inattentive type Relevant Medications QUEtiapine (SEROQUEL) 50 MG tablet traZODone (DESYREL) 150 MG tablet Other Relevant Orders Ambulatory referral to Behavioral Health Borderline personality disorder (HCC) Relevant Medications QUEtiapine (SEROQUEL) 50 MG tablet traZODone (DESYREL) 150 MG tablet Other Relevant Orders Ambulatory referral to Behavioral Health Insomnia Relevant Medications traZODone (DESYREL) 150 MG tablet Other Visit Diagnoses Healthcare maintenance Relevant Orders Lipid Panel CBC and Differential Comprehensive Metabolic Panel Discussed with patient, will send refill for Seroquel and trazodone. We did discuss other medication management for him for his ADHD, depression, borderline personality disorder, however he does admit to thoughts of harming himself. Denies active plan or acting on thoughts. Due to this and history of trialing different medications in the past without relief, will send referral to psychiatry. Did send message to try to get patient to be sooner. Discussed with patient if symptoms worsen, or warning signs symptoms reviewed with patient encouraged emergent follow-up. Patient verbalized understanding agreement plan of care. For any medications prescribed today, patient was educated about indications for the medication, how to take the medication and potential side effects of the medication. Wellness examination completed today. Discussed weight loss, diet and exercise and healthy lifestyle. Health recommendations and screenings reviewed and discussed with patient for age. Laboratory levels reviewed and discussed with patient, laboratory orders placed at this time, discussed with patient to be fasting, will notify once resulted. Please note: Portions of this chart may have been created with [employer] voice recognition software. Occasional wrong-word or sound-like substitutions may have occurred due to inherent limitations of the voice recognition software. Please read the chart carefully and recognize, using context, where the substitutions have occurred. Electronically signed by COREY Canales 5:07 PM [1] Social History Tobacco Use Smoking status: Former Current packs/day: 0.00 Types: Cigarettes Quit date: 2016 Years since quittin.2 Smokeless tobacco: Never Vaping Use Vaping status: Never Used Substance Use Topics Alcohol use: Yes Comment: rarely Drug use: Yes Frequency: 7.0 times per week Types: Marijuana, Psilocybin Comment: Pt mostly uses edibles [2] Allergies Allergen Reactions Strattera [Atomoxetine] Other (See Comments) myalgia documented in this encounter [facility] 07-22-2023 Hospital course Narrative Images from the original note were not included. [facility] [place] -- [facility] Sebastian Molina Admitted: 07/21/2023 Discharge Date: 07/22/23 PCP Handoff Recommended Outpatient Testing F/u with PCP and psych, consider psychologist Results Pending At Discharge none Clinical Summary Sebastian Molina is a 37 y.o. male patient of Lynn Lemus MD with history of borderline personality disorder, ADHD, depression, insomnia presented to [facility] with accidental overdose. Pt doing well. No longer shaky. Is fatigued. Has been having a sleep schedule that is off since losing his job recently. Little stressed at home. Denies other ROS. PE is unremarkable. Will dc this afternoon if still doing well. Resume home meds on discharge. Accidental overdose Wellbutrin 450 mg, Lamictal 100 mg, Seroquel 50 mg taken at 5 AM 07/21 and again at 2:30 PM 07/21 Hold all home medications Labs within normal limits Patient EKG within normal limits Monitor patient overnight As needed Ativan p.o. for sleep and anxiety Borderline personality disorder ADHD Depression Insomnia Hold home Wellbutrin, Lamictal, Seroquel, trazodone Will resume medications at discharge Discharge Medications Discharge Medications Medications To Continue Details * buPROPion 150 MG 24 hr tablet Commonly known as: WELLBUTRIN XL Take 1 (one) tablet (150 mg total) by mouth daily . * buPROPion 300 MG 24 hr tablet Commonly known as: WELLBUTRIN XL Take 1 (one) tablet (300 mg total) by mouth daily Take one with the 150 to total 450 . lamoTRIgine 100 MG tablet Commonly known as: LAMICTAL Take 1 (one) tablet (100 mg total) by mouth daily . QUEtiapine 50 MG tablet Commonly known as: SEROQUEL Take 1 (one) tablet (50 mg total) by mouth nightly . traZODone 150 MG tablet Commonly known as: DESYREL Take 2 (two) tablets (300 mg total) by mouth nightly . * There are duplicate medications prescribed to the patient Physician(s) Follow Up: No follow-up provider specified. Condition at Discharge: Good Disposition: Home I reviewed discharge recommendations with the patient in person. Patient instructions, including activity, were given to the patient/family at discharge. On day of discharge I saw Sebastian Molina and spent: < 30 minutes on discharge. Completed by: Tomas Mcdonald on 07/22/23, 9:30 AM documented in this encounter [facility] 07-21-2023 History and physical note [facility] [place]YSICAL -- [facility] Patient Name: Sebastian Molina : 1985 MR #: [id number] Admit Date: 07/21/2023 Physicians: Lynn Lemus MD (Family); Candy Gilbert,* (Referring) Sebastian Molina is a 37 y.o. male patient of Lynn Lemus MD with history of borderline personality disorder, ADHD, depression, insomnia presented to [facility] with accidental overdose. 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 for sleep and anxiety Borderline personality disorder ADHD Depression Insomnia Hold home Wellbutrin, Lamictal, Seroquel, trazodone Will resume medications at discharge Residence prior to admission: house or apartment Was patient transferred from outlying hospital or ED yes -- care site [facility] Quality Measures DVT Prophylaxis: ambulation only Castrejon Catheter: absent Medication Reconciliation: Verified Risk variables present on admission: None. Please see assessment and plan for further details. Estimated Date of Discharge less than 2 midnights Code Status Full Code; code status verified on 07/22/2023 with patient (capacity intact) Chief Complaint accidental overdose History of Present Illness Sebastian Molina is a 37 y.o. male patient of Lynn Lemus MD with history of borderline personality disorder, ADHD, depression, insomnia presented to [facility] with accidental overdose. Patient reports that before going to sleep at 5 AM on 07/21 he took his medications including Wellbutrin, Seroquel, Lamictal and went to sleep. Upon arising at about 2:30 PM on the same day he looked at his pill container and saw pills present for the day and thought he had forgotten to take them and subsequently took an additional full dose of Wellbutrin, Seroquel, Lamictal. He immediately realized that he had taken his pills twice which caused him to have an anxiety attack. He looked up online and found that elevated doses of Wellbutrin can lead to a seizure. This prompted him to call poison control who instructed him to come to the ER. He is sent over from [facility] to complete his 24 hours of observation. Patient reports he is feeling a bit anxious but otherwise back to normal. He reports that this was an accidental overdose. Past Medical History Past Medical History: Diagnosis Date ADHD Depression Insomnia Past Surgical History No past surgical history on file. Family History Family History Problem Relation Age of Onset No Known Problems Mother No Known Problems Father Stroke Maternal Grandmother Dementia Maternal Grandfather Epilepsy Brother Diabetes Maternal Aunt Social History Social History Tobacco Use Smoking Status Former Types: Cigarettes Quit date: 2017 Years since quittin.9 Smokeless Tobacco Never Social History Substance and Sexual Activity Alcohol Use Yes Comment: rarely Social History Substance and Sexual Activity Drug Use Yes Frequency: 7.0 times per week Types: Marijuana, Psilocybin Comment: Pt mostly uses edibles Allergy Information I have reviewed the patient's allergies. Strattera [atomoxetine] Home Medications Home medications were reviewed. Review Of Systems All relevant systems have been reviewed and are negative except as noted in HPI or below Physical Examination BP 120/68 Pulse 85 Temp 98 F (36.7 C) (Oral) Resp 16 Wt 69.3 kg (152 lb 12.5 oz) SpO2 96% BMI 22.56 kg/m General Appearance: alert; well appearing; in no acute distress HEENT: Head- normocephalic; Eyes- EOMI, sclera anicteric; Throat- mucous membranes moist Cardiovascular: regular rate and rhythm; normal S1, S2; no murmurs, rubs, clicks or gallops; peripheral edema absent Respiratory: lungs clear to auscultation; without wheezes, rales or rhonchi; on room air Abdomen: soft, non-tender, non-distended Neurological: oriented x 3; normal speech; no focal findings or movement disorder noted Musculoskeletal: no significant deformity or tenderness to palpation Skin: normal coloration Psych: normal mood and affect [facility] 07-21-2023 History and physical note [facility] [place]ICAL -- [facility] Patient Name: Sebastian Molina : 1985 MR #: [id number] Admit Date: 07/21/2023 Physicians: Lynn Lemus MD (Family); Candy Gilbert,* (Referring) Sebastian Molina is a 37 y.o. male patient of Lynn Lemus MD with history of borderline personality disorder, ADHD, depression, insomnia presented to [facility] with accidental overdose. 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 for sleep and anxiety Borderline personality disorder ADHD Depression Insomnia Hold home Wellbutrin, Lamictal, Seroquel, trazodone Will resume medications at discharge Residence prior to admission: house or apartment Was patient transferred from outlying hospital or ED yes -- care site [facility] Quality Measures DVT Prophylaxis: ambulation only Castrejon Catheter: absent Medication Reconciliation: Verified Risk variables present on admission: None. Please see assessment and plan for further details. Estimated Date of Discharge less than 2 midnights Code Status Full Code; code status verified on 07/22/2023 with patient (capacity intact) Chief Complaint accidental overdose History of Present Illness Sebastian Molina is a 37 y.o. male patient of Lynn Lemus MD with history of borderline personality disorder, ADHD, depression, insomnia presented to [facility] with accidental overdose. Patient reports that before going to sleep at 5 AM on 07/21 he took his medications including Wellbutrin, Seroquel, Lamictal and went to sleep. Upon arising at about 2:30 PM on the same day he looked at his pill container and saw pills present for the day and thought he had forgotten to take them and subsequently took an additional full dose of Wellbutrin, Seroquel, Lamictal. He immediately realized that he had taken his pills twice which caused him to have an anxiety attack. He looked up online and found that elevated doses of Wellbutrin can lead to a seizure. This prompted him to call poison control who instructed him to come to the ER. He is sent over from [facility] to complete his 24 hours of observation. Patient reports he is feeling a bit anxious but otherwise back to normal. He reports that this was an accidental overdose. Past Medical History Past Medical History: Diagnosis Date ADHD Depression Insomnia Past Surgical History No past surgical history on file. Family History Family History Problem Relation Age of Onset No Known Problems Mother No Known Problems Father Stroke Maternal Grandmother Dementia Maternal Grandfather Epilepsy Brother Diabetes Maternal Aunt Social History Social History Tobacco Use Smoking Status Former Types: Cigarettes Quit date: 2017 Years since quittin.9 Smokeless Tobacco Never Social History Substance and Sexual Activity Alcohol Use Yes Comment: rarely Social History Substance and Sexual Activity Drug Use Yes Frequency: 7.0 times per week Types: Marijuana, Psilocybin Comment: Pt mostly uses edibles Allergy Information I have reviewed the patient's allergies. Strattera [atomoxetine] Home Medications Home medications were reviewed. Review Of Systems All relevant systems have been reviewed and are negative except as noted in HPI or below Physical Examination BP 120/68 Pulse 85 Temp 98 F (36.7 C) (Oral) Resp 16 Wt 69.3 kg (152 lb 12.5 oz) SpO2 96% BMI 22.56 kg/m General Appearance: alert; well appearing; in no acute distress HEENT: Head- normocephalic; Eyes- EOMI, sclera anicteric; Throat- mucous membranes moist Cardiovascular: regular rate and rhythm; normal S1, S2; no murmurs, rubs, clicks or gallops; peripheral edema absent Respiratory: lungs clear to auscultation; without wheezes, rales or rhonchi; on room air Abdomen: soft, non-tender, non-distended Neurological: oriented x 3; normal speech; no focal findings or movement disorder noted Musculoskeletal: no significant deformity or tenderness to palpation Skin: normal coloration Psych: normal mood and affect documented in this encounter [facility] 07-21-2023 Note Formatting of this n ote might be different from the original. Care plan initiated Problem: Actual or potential alteration in health Goal: Absence of healthcare acquired conditions Outcome: Partially Met Goal: Knowledge of Interdisciplinary Plan of Care Outcome: Partially Met Goal: Knowledge of Enviroment Outcome: Partially Met [facility] 07-21-2023 Miscellaneous Notes Care plan initiated Problem: Actual or potential alteration in health Goal: Absence of healthcare acquired conditions Outcome: Partially Met Goal: Knowledge of Interdisciplinary Plan of Care Outcome: Partially Met Goal: Knowledge of Enviroment Outcome: Partially Met documented in this encounter [facility] 2022 History of Presen t illness Narrative Images from the original note were not included. Subjective Patient ID: Sebastian Molina is a 37 y.o. male. Seeing online psych for his meds - [facility] [place] for his adhd and depression symptoms, and has changed his medication Patient thinks that he has been having issues with medications does not like the doc much -wanted to discuss us taking over his medications again Has erectile dysfunction for years, has desire but difficulty with maintaining erections his desire seems to be normal this has been going on for quite some time but has not ever had it treated The following portions of the patient's history were reviewed and updated as appropriate: allergies, current medications, past family history, past medical history, past social history, past surgical history, and problem list. Review of Systems Constitutional: Negative for fever. Genitourinary: Negative for difficulty urinating, hematuria and testicular pain. Psychiatric/Behavioral: Positive for decreased concentration and dysphoric mood. Objective Physical Exam Constitutional: General: He is not in acute distress. Appearance: He is normal weight. Neurological: Mental Status: He is alert. Assessment/Plan: Diagnoses and all orders for this visit: Erectile dysfunction, unspecified erectile dysfunction type - sildenafiL (VIAGRA) 100 MG tablet; Take 1 (one) tablet (100 mg total) by mouth daily as needed for erectile dysfunction . Going to try medications if not effective after 2 or 3 attempts call we can try Cialis and if that does not work refer to urology Discussed his anxiety depression and attention deficit and again happy to continue his medications but are not going to prescribe stimulants at his age and if he has been having continued difficulty with his symptoms and continued need for medication adjustment that we really should have him see psychiatry offered to refer to maged bruno he is going to consider if he is going to stay with his current online psychiatrist or would like to get referral from us or if he is stable on medications and not wanting to continue the Ritalin I will be happy to prescribe Lynn Lemus M.D. For any new medications prescribed today, patient was educated about indications for the medication, how to take the medication and potential side effects of the medications. documented in this encounter [facility] 08-10-2022 History of Presen t illness Narrative Associated Order(s): LG Jt Injection/Arthrocentesis: L subacromial bursa Post-Procedure Diagnose(s): Rotator cuff tendinitis, left; Chronic shoulder bursitis, left LG Jt Injection/Arthrocentesis: L subacromial bursa Performed by: Nacho Moreno CNP Authorized by: Nacho Moreno CNP CPT 61626 - Large Joint Arthrocentesis: Consent given by: Patient Time out: Immediately prior to the procedure a time out was called Timeout performed at: 08/10/2022 8:34 AM Physician or proceduralist has discussed critical or nonroutine steps, procedure duration and anticipated blood loss: Yes Supporting Documentation: Indications: Pain Procedure Details: Location: Shoulder Site: L subacromial bursa Prep: patient was prepped and draped in usual sterile fashion Needle size: 22 G Approach: Posterior Medications: 40 mg triamcinolone acetonide 40 mg/mL Anesthetic used: Ethyl Chloride and Bupivacaine 0.5% Anesthetic amount (mL): 1 Patient tolerance: Patient tolerated the procedure well with no immediate complications Patient is a 36 year old male here today for follow up on left shoulder pain. I last saw him on 03/22/2022 and gave him a cortisone injection for biceps tendinitis and bursitis to the bicipital groove. This lasted a few weeks and then he went back to the gym and now the pain is back, however the pain is not in the biceps tendon it is more posterior and lateral this time. I think he has rotator cuff tendinitis and bursitis. Discussed that his job where he has repetitious heavy lifting is causing an overuse injury to the shoulder. Pain is 8/10 to the left shoulder. He has good range of motion and strength. The pain is only with certain movements and at night. Offered another injection and physical therapy. He is wanting to do the injection today but wait on the therapy. Discussed that we will need to therapy prior to a MRI if needed and he does understand this. Injection given without difficulty and he will follow up as needed. He understands and agrees to proceed. documented in this encounter [facility] 04-07-2022 History of Presen t illness Narrative Faxed for records [place] [phone] Images from the original note were not included. Subjective Patient ID: Sebastian Molina is a 36 y.o. male. New patient today - previous doc in [place] - can't think of who it was, Also with an online doctor for ADHD treatment - seen in the last month or so Says was doing the online ADHD treatements but they can no longer do medications for him Does a second online group since October ([place]) doing this weekly - Has been treated with seroquel and wellbutrin along with methylphendiate ER 27mg Overall he has done relatively well at this point he would like to consider stopping his Adderall but continuing treatment The following portions of the patient's history were reviewed and updated as appropriate: allergies, current medications, past family history, past medical history, past social history, past surgical history, and problem list. Review of Systems Constitutional: Negative for chills, diaphoresis and fever. HENT: Negative for congestion and sinus pain. Eyes: Negative for redness. Respiratory: Negative for cough, shortness of breath and wheezing. Cardiovascular: Negative for chest pain. Gastrointestinal: Negative for diarrhea, nausea and vomiting. Endocrine: Negative for polydipsia. Genitourinary: Negative for frequency and hematuria. Musculoskeletal: Negative for back pain. Neurological: Negative for weakness and headaches. Psychiatric/Behavioral: Negative for confusion and suicidal ideas. The patient is nervous/anxious. Objective Physical Exam Vitals reviewed. Constitutional: General: He is awake. Appearance: Normal appearance. He is well-developed. HENT: Head: Normocephalic and atraumatic. Right Ear: Tympanic membrane and ear canal normal. Left Ear: Tympanic membrane and ear canal normal. Nose: Nose normal. Eyes: General: Lids are normal. Extraocular Movements: Extraocular movements intact. Pupils: Pupils are equal, round, and reactive to light. Cardiovascular: Rate and Rhythm: Normal rate and regular rhythm. Heart sounds: S1 normal and S2 normal. No murmur heard. No friction rub. No gallop. Pulmonary: Effort: Pulmonary effort is normal. No tachypnea. Breath sounds: Normal breath sounds. No stridor or decreased air movement. No wheezing, rhonchi or rales. Neurological: Mental Status: He is alert. Gait: Gait is intact. Psychiatric: Behavior: Behavior is cooperative. Assessment/Plan: Diagnoses and all orders for this visit: Discussed with patient that his age not comfortable continuing with stimulant medications for his attention deficit disorder and we could try different medication or refer to specialist for evaluation for further management at this point he would like to try adjust medications we are going to increase his Wellbutrin 450 mg and he will call with update Routine medical exam - Basic Metabolic Panel; Future - CBC and Differential; Future - Hemoglobin A1c; Future - Hepatic Function Panel; Future - Lipid Panel; Future - TSH; Future Attention deficit hyperactivity disorder (ADHD), predominantly inattentive type - buPROPion (FORFIVO XL) 450 mg 24 hr tablet; Take 1 (one) tablet (450 mg total) by mouth daily . Moderate episode of recurrent major depressive disorder (HCC) - QUEtiapine (SEROQUEL) 100 MG tablet; Take 1 (one) tablet (100 mg total) by mouth daily . - buPROPion (FORFIVO XL) 450 mg 24 hr tablet; Take 1 (one) tablet (450 mg total) by mouth daily . Lynn Lemus M.D. For any new medications prescribed today, patient was educated about indications for the medication, how to take the medication and potential side effects of the medications. documented in this encounter [facility] 04-06-2022 History of Presen t illness Narrative Images from the original note were not included. Subjective Patient ID: Sebastian Molina is a 36 y.o. male. New patient today - previous doc in [place] - can't think of who it was, Also with an online doctor for ADHD treatment - seen in the last month or so Says was doing the online ADHD treatements but they can no longer do medications for him Does a second online group since October ([place]) doing this weekly - Has been treated with seroquel and wellbutrin along with methylphendiate ER 27mg Overall he has done relatively well at this point he would like to consider stopping his Adderall but continuing treatment The following portions of the patient's history were reviewed and updated as appropriate: allergies, current medications, past family history, past medical history, past social history, past surgical history, and problem list. Review of Systems Constitutional: Negative for chills, diaphoresis and fever. HENT: Negative for congestion and sinus pain. Eyes: Negative for redness. Respiratory: Negative for cough, shortness of breath and wheezing. Cardiovascular: Negative for chest pain. Gastrointestinal: Negative for diarrhea, nausea and vomiting. Endocrine: Negative for polydipsia. Genitourinary: Negative for frequency and hematuria. Musculoskeletal: Negative for back pain. Neurological: Negative for weakness and headaches. Psychiatric/Behavioral: Negative for confusion and suicidal ideas. The patient is nervous/anxious. Objective Physical Exam Vitals reviewed. Constitutional: General: He is awake. Appearance: Normal appearance. He is well-developed. HENT: Head: Normocephalic and atraumatic. Right Ear: Tympanic membrane and ear canal normal. Left Ear: Tympanic membrane and ear canal normal. Nose: Nose normal. Eyes: General: Lids are normal. Extraocular Movements: Extraocular movements intact. Pupils: Pupils are equal, round, and reactive to light. Cardiovascular: Rate and Rhythm: Normal rate and regular rhythm. Heart sounds: S1 normal and S2 normal. No murmur heard. No friction rub. No gallop. Pulmonary: Effort: Pulmonary effort is normal. No tachypnea. Breath sounds: Normal breath sounds. No stridor or decreased air movement. No wheezing, rhonchi or rales. Neurological: Mental Status: He is alert. Gait: Gait is intact. Psychiatric: Behavior: Behavior is cooperative. Assessment/Plan: Diagnoses and all orders for this visit: Discussed with patient that his age not comfortable continuing with stimulant medications for his attention deficit disorder and we could try different medication or refer to specialist for evaluation for further management at this point he would like to try adjust medications we are going to increase his Wellbutrin 450 mg and he will call with update Routine medical exam - Basic Metabolic Panel; Future - CBC and Differential; Future - Hemoglobin A1c; Future - Hepatic Function Panel; Future - Lipid Panel; Future - TSH; Future Attention deficit hyperactivity disorder (ADHD), predominantly inattentive type - buPROPion (FORFIVO XL) 450 mg 24 hr tablet; Take 1 (one) tablet (450 mg total) by mouth daily . Moderate episode of recurrent major depressive disorder (HCC) - QUEtiapine (SEROQUEL) 100 MG tablet; Take 1 (one) tablet (100 mg total) by mouth daily . - buPROPion (FORFIVO XL) 450 mg 24 hr tablet; Take 1 (one) tablet (450 mg total) by mouth daily . Lynn Lemus M.D. For any new medications prescribed today, patient was educated about indications for the medication, how to take the medication and potential side effects of the medications. documented in this encounter [facility] 03-22-2022 History of Presen t illness Narrative Associated Order(s): LG Jt Injection/Arthrocentesis Post-Procedure Diagnose(s): Acute shoulder bursitis, left; Biceps tendinitis of left shoulder LG Jt Injection/Arthrocentesis Performed by: Nacho Moreno CNP Authorized by: Nacho Moreno CNP CPT 83104 - Large Joint Arthrocentesis: Consent given by: Patient Time out: Immediately prior to the procedure a time out was called Timeout performed at: 03/22/2022 8:30 AM Physician or proceduralist has discussed critical or nonroutine steps, procedure duration and anticipated blood loss: Yes Supporting Documentation: Indications: Pain Procedure Details: Location: Shoulder Shoulder joint: L biceps tendon groove. Prep: patient was prepped and draped in usual sterile fashion Needle size: 22 G Approach: Posterior Medications: 40 mg triamcinolone acetonide 40 mg/mL Anesthetic used: Ethyl Chloride Patient tolerance: Patient tolerated the procedure well with no immediate complications Sebastian Molina 1985 CC: 36 y.o. is a he with No chief complaint on file. . HPI: Shoulder Pain Patient complains of left shoulder pain.The symptoms began about a month ago after he attended [facility] and was in a [facility] . 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 Pain is located anterior, acromioclavicular joint, biceps tendon . Discomfort is described as aching and sharp/stabbing. Symptoms are exacerbated by repetitive movements and overhead movements. This is evaluated as a personal injury. Evaluation to date: none and None. Therapy to date includes: excedrin and avoiding painful activities as much as possible . PMH: No Known Allergies Current Outpatient Medications: methylPREDNISolone (MEDROL DOSEPACK) 4 mg tablet, follow package directions ., Disp: 21 tablet, Rfl: 0 History reviewed. No pertinent past medical history. History reviewed. No pertinent surgical history. Social History Socioeconomic History Marital status: Single ROS: Review of Systems Constitutional: Negative for activity change and fatigue. HENT: Negative. Eyes: Negative. Respiratory: Negative for chest tightness and shortness of breath. Cardiovascular: Negative for chest pain. Gastrointestinal: Negative. Endocrine: Negative. Genitourinary: Negative. Musculoskeletal: Positive for arthralgias. Skin: Negative for color change. Allergic/Immunologic: Negative. Neurological: Negative for dizziness, light-headedness and numbness. Hematological: Negative. Psychiatric/Behavioral: Negative for agitation. PE: Physical Exam Constitutional: Appearance: He is well-developed. HENT: Head: Normocephalic and atraumatic. Right Ear: Tympanic membrane normal. Left Ear: Tympanic membrane normal. Nose: Nose normal. Mouth/Throat: Mouth: Mucous membranes are moist. Eyes: Pupils: Pupils are equal, round, and reactive to light. Cardiovascular: Rate and Rhythm: Normal rate and regular rhythm. Pulses: Normal pulses. Heart sounds: Normal heart sounds. Pulmonary: Effort: Pulmonary effort is normal. Breath sounds: Normal breath sounds. Abdominal: General: There is no distension. Palpations: Abdomen is soft. Musculoskeletal: General: Tenderness present. Cervical back: Normal range of motion and neck supple. Skin: General: Skin is warm and dry. Neurological: Mental Status: He is alert and oriented to person, place, and time. Psychiatric: Behavior: Behavior normal. Right Shoulder Exam Right shoulder exam is normal. Left Shoulder Exam Tenderness The patient is experiencing tenderness in the acromioclavicular joint and biceps tendon. Range of Motion The patient has normal left shoulder ROM. Muscle Strength The patient has normal left shoulder strength. Tests Impingement: negative Drop arm: negative Other Erythema: absent Scars: absent Sensation: normal Pulse: present Comments: Pain with empty can test Pain with internal rotation with hand behind his back but is able to perform lift off test Proximal biceps tendon area very swollen Imaging: Reviewed left shoulder xray done in office today that shows no acute bony abnormalities Diagnosis: Problem List Items Addressed This Visit None Visit Diagnoses Biceps tendinitis of left shoulder - Primary Acute shoulder bursitis, left Plan: Discussed xray results, symptoms, and physical exam with patient with patient. Discussed biceps tendinitis and bursitis and treatment with a cortisone injection, medrol dose pack, and home exercises. He is wanting to do this. This was given without difficulty and he tolerated it well. I would like to see him back in about 4 weeks to check his progress. He understands and agrees to proceed. Follow Up: Return in about 4 weeks (around 04/19/2022), or if symptoms worsen or fail to improve, for Recheck. Nacho Moreno CNP documented in this encounter [facility] Evaluation note Diagnosis Biceps tendinitis of left shoulder- Primary Acute shoulder bursitis, left [facility] Routine medical exam- Primary Routine general medical examination at a health care facility Attention deficit hyperactivity disorder (ADHD), predominantly inattentive type Moderate episode of recurrent major depressive disorder (HCC) [facility] Diagnosis Routine medical exam- Primary Routine general medical examination at a health care facility Attention deficit hyperactivity disorder (ADHD), predominantly inattentive type Moderate episode of recurrent major depressive disorder (HCC) [facility] Diagnosis Rotator cuff tendinitis, left- Primary Chronic shoulder bursitis, left [facility] Diagnosis Erectile dysfunction, unspecified erectile dysfunction type- Primary [facility] Diagnosis Accidental overdose of buspirone- Primary [facility] Diagnosis Moderate episode of recurrent major depressive disorder (HCC)- Primary Attention deficit hyperactivity disorder (ADHD), predominantly inattentive type Borderline personality disorder (HCC) Borderline personality disorder Healthcare maintenance Insomnia, unspecified type [facility] Diagnosis Moderate episode of recurrent major depressive disorder (HCC)- Primary Attention deficit hyperactivity disorder (ADHD), predominantly inattentive type Borderline personality disorder (HCC) Borderline personality disorder Healthcare maintenance Insomnia, unspecified type [facility] Diagnosis Moderate episode of recurrent major depressive disorder (HCC)- Primary Attention deficit hyperactivity disorder (ADHD), predominantly inattentive type Borderline personality disorder (HCC) Borderline personality disorder Generalized anxiety disorder [facility] Diagnosis Moderate episode of recurrent major depressive disorder (HCC) Generalized anxiety disorder [facility] Diagnosis Moderate episode of recurrent major depressive disorder (HCC) Generalized anxiety disorder [facility] Diagnosis Moderate episode of recurrent major depressive disorder (HCC)- Primary Borderline personality disorder (HCC) Borderline personality disorder Paranoia (HCC) Delusional disorder [facility]DC current use of antipsychotic medication [facility] Diagnosis Moderate episode of recurrent major depressive disorder (HCC) Paranoia (HCC) Delusional disorder [facility]* Attachments The following attachments cannot be sent through Care Everywhere. * Biceps Tendinitis: Exercises (Vincentian) * Shoulder Bursitis Exercises (Vincentian) [facility] Attachments The following attachments cannot be sent through Care Everywhere. * Shoulder Bursitis Exercises (Vincentian) * Rotator Cuff: Exercises (Vincentian) * Biceps Tendinitis: Exercises (Vincentian) documented in this encounterOhioHealthReason for visit Narrative* Psychiatric (Routine) - Pending Review Specialty Diagnoses / Procedures Referred By Contindira t Referred To Contact Psychiatry Diagnoses Moderate episode of recurrent major depressive disorder (HCC) Attention deficit hyperactivity disorder (ADHD), predominantly inattentive type Borderline personality disorder (HCC) Robert Hernandez CNP [address] [address] Phone: tel: fax: Jumana Jimenez CNP [address] [address] Phone: tel: fax: Referral ID Status Reason Start Date Expiration Date Visits Requested Visits Authorized [id number] Pending Review Specialty Services Required/Pat ient's Best Interest 11/14/2024 11/14/2025 1 1 [facility] Summary Purpose Family History No Family History Records FoundNo Family History Records FoundNo Family History Records FoundNo Family History Records FoundNo Family History Records FoundNo Family History Records Found Advance Directives No Advanced Directives Records FoundLatest Code Status on File Code Status Date Activated Date Inactivated Comments Full Code - Unverified 07/21/2023 11:45 PM 07/22/2023 3:33 PM Date Activated Date Inactivated Comments 07/21/2023 11:45 PM 07/22/2023 3:33 PM Date Activated Date Inactivated Comments 07/21/2023 11:45 PM 07/22/2023 3:33 PM Reason for Referral Specialty Diagnoses / Procedures Referred By Contindira t Referred To Contact Diagnoses Attention deficit hyperactivity disorder (ADHD), predominantly inattentive type Moderate episode of recurrent major depressive disorder (HCC) Lynn Lemus MD [address] [address] Referral ID Status Reason Start Date Expiration Date Visits Re quested Visits Authorized [id number] Closed 1 1 Additional Source Comments (unrecognized sect ion and content) No Status Records FoundNo Status Records FoundNo Status Records FoundNo Status Records FoundNo Status Records FoundNo Status Records Found INFORMATION SOURCE (unrecogn ized section and content) DATE CREATED AUTHOR 06/28/2021 [facility] DATE CREATED AUTHOR AUTHOR'S ORGANIZ ATION 11/03/2021 [facility] DATE CREATED AUTHOR AUTHOR'S ORGANIZ ATION 03/27/2022 [facility] DATE CREATED AUTHOR AUTHOR'S ORGANIZ ATION [facility] DATE CREATED AUTHOR AUTHOR'S ORGANIZ ATION 08/24/2023 [facility] DATE CREATED AUTHOR [facility]S [facility]IZ AT[facility]item> Privacy Markings (unrecogniz ed section and content) Section Author: Felicia Varner PROHIBITION ON REDISCLOSURE OF CONFIDENTIAL INFORMATION This notice accompanies a disclosure of information concerning a client made to you with the consent of such client. Care Teams (unrecognized sec tion and content) Billboard Erector Relationship Specialty Start Date End Date No, Physician [facility] PCP - General 03/22/22 Billboard Erector Relationship Specialty Start Date End Date Lynn Lemus MD [facility] [place] [address] PCP - General Family Medicine 04/06/22 Billboard Erector Relationship Specialty Start Date End Date Lynn Lemus MD [address] [place] [address] PCP - General Family Medicine 04/06/22 Billboard Erector Relationship Specialty Start Date End Date Lynn Lemus MD [address] [place] [address] PCP - General Family Medicine 04/06/22 Lynn Lemus MD [address] [place] [address] PCP - ERNIE Attributed Provider - [employer] 09/28/21 07/30/50 Billboard Erector Relationship Specialty Start Date End Date Lynn Lemus MD [facility] [place] [address] PCP - General Family Medicine 04/06/22 Lynn Lemus MD [address] [place] [address] PCP - ERNIE Attributed Provider - [employer] Commercial 09/28/21 07/30/50 Billboard Erector Relationship Specialty Start Date End Date Lynn Lemus MD [address] [place], [place] [id number] PCP - General Family Medicine 04/06/22 Billboard Erector Relationship Specialty Start Date End Date Lynn Lemus MD [address] [address] PCP - General Family Medicine 04/06/22 Billboard Erector Relationship Specialty Start Date End Date Lynn Lemus MD [address] [address] PCP - General Family Medicine 04/06/22 11/17/24 Robert Hernandez CNP [address] [place] [id number] PCP - General Nurse Practitioner 11/18/24 Billboard Erector Relationship Specialty Start Date End Date Robert Hernandez CNP [address] [address] PCP - General Nurse Practitioner 11/18/24 Billboard Erector Relationship Specialty Start Date End Date Robert Hernandez CNP [address] [address] PCP - General Nurse Practitioner 11/18/24 Billboard Erector Relationship Specialty Start Date End Date Robert Hernandez CNP [address] [address] PCP - General Nurse Practitioner 11/18/24 Billboard Erector Relationship Specialty Start Date End Date Robert Hernandez CNP [address] [address] PCP - General Nurse Practitioner 11/18/24 Billboard Erector Relationship Specialty Start Date End Date Robert HernandezNENA [facility] [place] [address] PCP - General Nurse Practitioner 11/18/24 Reason for Visit (unrecogniz ed section and content) Reason Comments Establish Care Medication Refill Reason Comments Follow-up 6 mon fu Specialty Diagnoses / Procedures Referred By Maria Fernanda moore Referred To Contact Diagnoses Accidental overdose of buspirone Overdose Referral ID Status Reason Start Date Expiration Date Visits Re quested Visits Authorized [id number] 1 1 Reason Comments Medication Refill Scheduled Active and Recently Administ ered Medications (unrecognized section and content) Medication Order 07/20/2023 07/21/2023 07/22/2023 sodium chloride (PF) (NS) flush 5 mL(Linked Group 1) 5 mL, Intravenous, Every 8 hours scheduled, First dose on Mon07/22/23 at 0045, Saline lock 0129 (Given - Provid er: Annalisa Trevizo RN)0600 (Not Given - Provider: Annalisa Trevizo RN - Reason: Other) PRN Medication Order 07/20/2023 07/21/2023 07/22/2023 aluminum-magnesium hydroxide-simethicone (MAALOX PLUS) 200-200-20 mg/5 mL suspension 30 mL 30 mL, Oral, Every 4 hours PRN, indigestion, Starting on Mon07/21/23 at 2344 ibuprofen (ADVIL,MOTRIN) tablet 600 mg 600 mg, Oral, Every 6 hours PRN, mild pain, fever 100.4 F or greater, headaches, Starting on Mon07/21/23 at 2344, Give with food. Do Not Crush or Chew if administering orally due to bitter taste. May be crushed if given via tube. LORazepam (ATIVAN) tablet 1 mg 1 mg, Oral, Every 6 hours PRN, anxiety, agitation, Starting on Mon07/21/23 at 2343 0128 (Given - Provid er: Annalisa Trevizo RN) melatonin Tab 5 mg 5 mg, Oral, Nightly PRN, Sleep, Starting on Mon07/21/23 at 2344 ondansetron (ZOFRAN) injection 4 mg(Linked Group 2) 4 mg, Intravenous, Every 6 hours PRN, nausea, vomiting, Starting on Mon07/21/23 at 2344, Use oral route first, if tolerated. ondansetron (ZOFRAN-ODT) disintegrating tablet 4 mg(Linked Group 2) 4 mg, Oral, Every 6 hours PRN, nausea, vomiting, Starting on Mon07/21/23 at 2344, Use oral route first, if tolerated. Formulation requires tablet remain in sealed package until immediately prior to dose being administered. sodium chloride (PF) (NS) flush 5 mL(Linked Group 1) 5 mL, Intravenous, As needed, line care, Starting on Mon07/21/23 at 2341 sodium chloride 0.9% (NS)(Linked Group 1) 0-150 mL/hr, Intravenous, As needed, To flush line after IV infusions when no maintenance IV ordered or a compatibility issue. Infuse 20ml at the same rate as the secondary infusion, Starting on Mon07/21/23 at 2341, Run as Primary IV. NOT intended for KVO. Linked Groups Order Group 1: Saline lock IV (CANCELED) Routine, Continuous, Starting on Mon07/21/23 at 2342, Until Specified And sodium chloride (PF) (NS) flush 5 mLJump to med 5 mL, Intravenous, As needed, line care, Starting on Mon07/21/23 at 2341 And sodium chloride (PF) (NS) flush 5 mLJump to med 5 mL, Intravenous, Every 8 hours scheduled, First dose on Mon07/22/23 at 0045
Saline lock
And sodium chloride 0.9% (NS)Jump to med 0-150 mL/hr, Intravenous, As needed, To flush line after IV infusions when no maintenance IV ordered or a compatibility issue. Infuse 20ml at the same rate as the secondary infusion, Starting on Mon07/21/23 at 2341
Run as Primary IV. NOT intended for KVO.
Group 2: ondansetron (ZOFRAN-ODT) disintegrating tablet 4 mgJump to med 4 mg, Oral, Every 6 hours PRN, nausea, vomiting, Starting on Mon07/21/23 at 2344
Use oral route first, if tolerated. Formulation requires tablet remain in sealed package until immediately prior to dose being administered.
Or ondansetron (ZOFRAN) injection 4 mgJump to med 4 mg, Intravenous, Every 6 hours PRN, nausea, vomiting, Starting on Mon07/21/23 at 2344
Use oral route first, if tolerated.
FOR RECORDS PERTAINING TO PATIENTS WHO ARE OR HAVE BEEN ENROLLED IN A CHEMICAL DEPENDENCY/SUBSTANCEABUSE PROGRAM, SOME INFORMATION MAY BE OMITTED. This clinical summary was aggregated from multiple sources. Caution should be exercised in using it in the provision of clinical care. This summary normalizes information from multiple sources, and as a consequence, information in this document may materially change the coding, format and clinical context of patient data. In addition, data may be omitted in some cases. CLINICAL DECISIONS SHOULD BE BASED ON THE PRIMARY CLINICAL RECORDS. [facility] provides no warranty or guarantee of the accuracy or completeness of information in this document.
[2025-07-24 16:04] VITALS: BP 106/66; PULSE 108; RESP 18; TEMP 37.6; O2SAT 97
== END 2025-07-24 16:06 | disposition home or self-care (01) ==
PROVIDERS: Emergency Provider Emergency Medicine; Visit Provider Emergency Medicine
DX: B34.9 Viral infection, unspecified (principal); R07.81 Pleurodynia; R05.9 Cough, unspecified
CPT/HCPCS: 71046; 99283